=== PATIENT | female | born 1930 | race Caucasian/White ===

== ENCOUNTER 2017-04-29 19:37 | Inpatient (IN) ==
[2017-04-29] MEDS ORDERED: ASPIRIN PO STA (20:02)
[2017-04-29 20:11] LABS: MANUAL DIFF NEEDED? NO
[2017-04-29 20:16] LABS: BASO% 0.3 % (0.0-0.8); EOS# 0.16 X1000 (0.0-0.7); EOS% 2.2 % (0.0-10.0); HEMATOCRIT 37.3 % (37.0-47.0); HEMOGLOBIN 12.5 g/dL (12.0-16.0); IMM GRAN# 0.01 X1000 (0.0-0.04); IMM GRAN% 0.1 % (0.0-0.5); LYMPH# 0.77 X1000 (1.2-3.4); LYMPH% 10.5 % (20.5-51.1); MCH 31.6 PG (27-31); MCHC 33.5 g/dL (33-37); MCV 94.2 FL (81-99); MONO# 0.52 X1000 (0.11-0.59); MONO% 7.1 % (1.7-9.3); MPV 11.1 FL (7.4-10.4); NEUT% 79.8 % (42.2-75.2); PLT 127 X1000 (130-400); RBC 3.96 XMIL (4.2-5.4)
[2017-04-29] MEDS ORDERED: NITROGLYCERIN TOP ONE (20:18)
[2017-04-29] MEDS ORDERED: ZOFRAN ODT PO ONE (20:18)
[2017-04-29 20:30] LABS: INR 1.92 (0.86-1.15); PROTIME 23.5 Seconds (12.1-15.5); PTT PL 35.9 Seconds (22.6-43.9)
[2017-04-29] MEDS ORDERED: ZOFRAN IV ONE (20:40)
[2017-04-29 20:42] LABS: ALBUMIN 4.5 g/dL (3.5-5.0); CALCIUM 9.5 mg/dL (8.8-10.2); MAGNESIUM 1.9 mg/dL (1.5-2.7); POTASSIUM 4.4 mmol/L (3.5-5.1); TOTAL BILIRUBIN 0.6 mg/dL (0.20-1.00)
[2017-04-29] MEDS ORDERED: NS 2,000 ML IV ONE (21:55)
[2017-04-29] MEDS ORDERED: ZOFRAN IV PRN (21:57)
[2017-04-30 06:57] LABS: HEMATOCRIT 35.3 % (37.0-47.0); HEMOGLOBIN 11.7 g/dL (12.0-16.0); MCH 31.4 PG (27-31); MCHC 33.1 g/dL (33-37); MCV 94.6 FL (81-99); MPV 11.3 FL (7.4-10.4); RBC 3.73 XMIL (4.2-5.4)
[2017-04-30 07:11] LABS: ALBUMIN 3.8 g/dL (3.5-5.0); POTASSIUM 4.2 mmol/L (3.5-5.1); TOTAL BILIRUBIN 0.6 mg/dL (0.20-1.00); TOTAL PROTEIN 6.4 g/dL (6.3-8.3)
[2017-04-30] MEDS: PROTONIX PO SCH (07:24)
[2017-04-30] MEDS ORDERED: NS 2,000 ML IV ONE (08:03)
[2017-04-30] MEDS: COZAAR PO SCH ×2 (09:06→20:07)
[2017-04-30] MEDS: COREG PO SCH ×2 (09:06→20:07)
[2017-04-30] MEDS: XARELTO PO SCH (09:07)
[2017-04-30] MEDS: APRESOLINE PO SCH ×2 (13:41→20:07)
[2017-04-30] MEDS ORDERED: ARICEPT PO SCH (21:00)
[2017-04-30] MEDS ORDERED: ATIVAN PO PRN (22:58)
[2017-05-01] MEDS: PROTONIX PO SCH ×2 (05:57→06:01)
[2017-05-01] MEDS: APRESOLINE PO SCH ×2 (05:57→15:38)
[2017-05-01] MEDS: COREG PO SCH (08:22)
[2017-05-01] MEDS: XARELTO PO SCH (08:22)
[2017-05-01] MEDS: COZAAR PO SCH (08:22)
[2017-05-01 12:37] VITALS: BP 151/66
== END 2017-05-01 16:20 | disposition home or self-care (01) ==
LOC: P.ED 19:37 → P.MEDSURG 19:37
PROVIDERS: ATTEND Family Medicine

== ENCOUNTER 2019-05-19 17:20 | Inpatient (IN) ==
[2019-05-19] MEDS ORDERED: DIPHTHERIA/TETANUS ADULT IM ONE (18:00)
[2019-05-19] MEDS ORDERED: NS 1,000 ML IV ONE (18:00)
[2019-05-19 18:24] LABS: ALLEN TEST YES; BE -1.1 mmoll (-3.0-3.0); BLOOD TYPE ARTERIAL; METHB 1.2 % (0.0-1.5); O2(CT) 17.2 mL/dL (15.0-23.0); O2HB 95.1 % (95.0-99.0); PCO2(98.6) 33 mmHg (35-45); PO2(98.6) 82 mmHg (60-100); SAMPLE BLOOD; SAO2 97.8 % (95.0-100.0); THB 12.8 g/dL (11.5-17.4); pH(98.6) 7.44 (7.35-7.45)
[2019-05-19 18:25] LABS: MODALITY ROOM AIR
--- NOTE | 2019-05-19 18:35 | PROVIDER DOCUMENTATION ---
This chart was entered by Mitali Quintero Scribe, acting as scribe for Negrito Barclay MD. HPI-Syncope/Dizziness - General Source: patient, family (daughters) - History of Present Illness-Syncope/Dizzy Prior Episodes: reports: multiple episodes today Onset/Duration: reports: this morning Timing: reports: intermittent Position/Activity at time of episode: reports: standing Symptoms prior to episode: reports: lightheaded, confusion, injury. denies: headache, nausea/vomiting, chest pain, abdominal pain, back pain, diaphoresis Context: reports: lost consciousness Loss of Consciousness: brief (seconds) Location of injury. (If syncope resulted in an injury.): reports: head (nose abrasion noted), LUE, LLE Current Symptoms: reports: weakness. denies: chest pain, abdominal pain, nausea, dizzy, headache, blurred vision Recently Seen Here or By Another Healthcare Provider: Yes <Negrito Barclay - Last Filed: 05/19/19 18:35> <Scott Suárez - Last Filed: 05/19/19 21:58> - General Chief Complaint: Fall Stated Complaint: fall Time Seen by Provider: 05/19/19 17:45 Allergies/Adverse Reactions: Patient Allergies Allergy/AdvReac Type Severity Reaction Status Date / Time No Known Allergies Allergy Verified 04/29/17 19:49 Home Medications: Home Medication List Medication Instructions Recorded Confirmed Last Taken Type Rivaroxaban [Xarelto] 20 mg PO DAILY 07/20/13 11/30/17 04/29/17 History 20mg Pantoprazole [Protonix] 40 mg PO DAILY@0700 #0 tablet 12/17/13 11/30/17 04/29/17 Rx 40mg Carvedilol 12.5 mg PO BID 07/08/14 11/30/17 04/29/17 History 12.5mg Losartan [Cozaar] 50 mg PO BID 07/08/14 11/30/17 04/29/17 History 50mg Hydralazine [Apresoline] 25 mg PO Q8HR #90 tablet 07/10/14 11/30/17 04/29/17 Rx 25mg Spironolact/Hydrochlorothiazid 0.5 tab PO DAILY 11/16/15 09/06/17 09/05/17 History [Spironolactone-Hctz 25-25 Tab] 25mg Donepezil [Aricept] 10 mg PO HS 03/05/16 04/30/17 04/29/17 History 10mg - History of Present Illness-Syncope/Dizzy Nature of Presenting Problem: 88 yowf presents to the ed with c/o syncopal episode x2 today with jerking episodes today last time at 1500. pt sts unsure what caused the syncope. pt daughters at bedisde sts she has not felt herself since waking this am (Negrito Barclay) Review of Systems - Adult - REVIEW OF SYSTEMS - ADULT Constitutional: denies: chills, fever Eyes: reports: no symptoms reported Ears, Nose, Mouth & Throat: reports: no symptoms reported Cardiovascular: reports: syncope. denies: chest pain, palpitations Respiratory: reports: no symptoms reported Gastrointestinal: denies: abdominal pain, diarrhea, nausea, vomiting Genitourinary: reports: no symptoms reported Musculoskeletal: denies: back pain, neck pain Integumentary: reports: no symptoms reported Neurological: reports: see HPI, loss of balance, syncope. denies: dizziness/vertigo, headache/migraines, numbness, paresthesia, slurred speech, tremors Psychiatric: reports: no symptoms reported Endocrine: reports: no symptoms reported Hematologic/Lymphatic: reports: no symptoms reported Allergic/Immunologic: reports: no symptoms reported All Other Systems: Reviewed and Negative <Negrito Barclay - Last Filed: 05/19/19 18:35> Past History - Adult - PAST MEDICAL HISTORY-ADULT Review of Records: reports: Old Records Reviewed, Nursing Assessment Review, Medications Reviewed, Social history reviewed & non-contributory. Major Childhood Illnesses: reports: denies history Cardiovascular: reports: cardiac disease, A-Fib, CHF, HTN, hyperlipidemia Respiratory: reports: other (lung cancer). denies: asthma, COPD, pneumonia, sleep apnea, tuberculosis Gastrointestinal: reports: GERD. denies: cholelithiasis, ulcer Obstetrical/Gynecological: reports: denies history Genitourinary: reports: other (acute renal failure). denies: dialysis Musculoskeletal: reports: arthritis Hand Dominance: Right Handed Neurological: reports: dementia. denies: CVA, Seizures/Epilepsy Psychiatric: reports: denies history Endocrine/Immune: reports: Diabetes (borderline), other (hyperkalemia) Other Conditions: reports: eye problems/injury (difficulty with her eyes), other (hypovolemia, arthralgias) - PRIOR SURGERIES/PROCEDURES Surgical/Procedure History: reports: appendectomy, cholecystectomy, hysterectomy , esophageal dilation, orthopedic (extremity) (foot), joint replacement (Right knee replacement) - PRIOR HOSPITALIZATIONS Prior Hospitalizations: reports: none - IMMUNIZATION STATUS Childhood Immunizations: UTD Flu Vaccine: UTD - FAMILY HISTORY Family History: reviewed, not pertinent - SOCIAL HISTORY Smoking: denies Substance Use: denies Living Situation: family <Negrito Barclay - Last Filed: 05/19/19 18:35> Physical Exam-General - PHYSICAL EXAM-ADULT Initial Vital Signs Reviewed: Yes - CONSTITUTIONAL General Appearance: appears well, alert, no apparent distress - EYES Eyes: PERRL/EOMI, pink conjunctivae - HEAD, EARS, NOSE, MOUTH & THROAT HENMT: moist mucous membranes, other (abrasion noted to nose) - NECK Neck: non-tender, full range of motion, normal inspection - RESPIRATORY Respiratory: chest non-tender, lungs clear, normal breath sounds - CARDIOVASCULAR Cardiovascular: gallop/S3, irregularly irregular - CHEST (BREASTS) Chest/Breast: deferred - GASTROINTESTINAL (ABDOMEN) Abdominal Exam: normal bowel sounds, non tender, soft - LYMPHATIC Lymphatic: no adenopathy - MUSCULOSKELETAL Back Exam: normal inspection, no CVA tenderness, no vertebral tenderness Extremity: normal range of motion, normal capillary refill, pelvis stable, other (abrasions noted to left elbow) - SKIN Integumentary: normal color, normal turgor, warm/dry, abrasion(s) (left elbow and nose) - NEUROLOGIC Neurologic: grossly normal - PSYCHIATRIC Psych/Mental Status: normal mood/affect, normal thought content, normal thought process, other (pt has mild confusion) <Negrito Barclay - Last Filed: 05/19/19 18:35> Progress - CHANGE OF SHIFT REPORT (ED Provider) 1 Report Given and Care Transferred to:: Dr. Suárez Time of Transfer: 19:00 Items Pending: Labs, XRAY Results, CT/MRI Results <Negrito Barclay - Last Filed: 05/19/19 18:35> - PLAN OF CARE/RESULTS Result Diagrams: 05/19/19 18:25 05/19/19 18:25 - CONSULTS/PCP/HOSPITALIST Notification #1 *Consult/PCP/Hospitalist*: Dr Zaldivar for Dr Pinto Time Discussed: 21:54 Consult Disposition: Will see in ED, Admit <Jose ArmandoScott gamaLazaro - Last Filed: 05/19/19 21:58> - PLAN OF CARE/RESULTS Progress/Plan/Lab Results: Vital Signs - 8 hr 05/19/19 17:27 Temperature 97.9 F Pulse Rate 80 Respiratory Rate 20 Blood Pressure 188/90 O2 Sat by Pulse Oximetry 95 Laboratory Results - last 24 hr 05/19/19 05/19/19 05/19/19 18:15 18:25 18:25 WBC 6.83 RBC 4.33 Hgb 13.2 Hct 38.9 MCV 89.8 MCH 30.5 MCHC 33.9 RDW Std Deviation 14.2 Plt Count 145 MPV 10.1 Immature Gran % (Auto) 0.0 Neut % (Auto) 84.9 H Lymph % (Auto) 9.4 L Bryan % (Auto) 5.7 Eos % (Auto) 0.0 Baso % (Auto) 0.0 Immature Gran # (Auto) 0.00 Neut # (Auto) 5.80 Lymph # (Auto) 0.64 L Bryan # (Auto) 0.39 Eos # (Auto) 0.00 Baso # (Auto) 0.00 PT INR PTT (Actin FS) Specimen Type ARTERIAL Sample Site R RADIAL pH 7.44 pCO2 33 L pO2 82 HCO3 24.0 Base Excess -1.1 Oxyhemoglobin 95.1 ABG O2 Sat (Calculated) 17.2 ABG O2 Saturation 97.8 ABG Carboxyhemoglobin 1.60 ABG Methemoglobin 1.2 Robert Test YES A-a O2 Difference 26.0 Total Hemoglobin 12.8 Lactate 0.90 Blood Gas Modality ROOM AIR FiO2 % 21.0 Sodium Potassium Chloride Carbon Dioxide Anion Gap BUN Creatinine Estimated GFR/1.73 m2 BUN/Creatinine Ratio Glucose Calculated Osmolality Calcium Total Bilirubin AST ALT Alkaline Phosphatase Creatine Kinase Troponin T Total Protein Albumin Globulin Albumin/Globulin Ratio Plasma Lactate Urine Source Urine Color Urine Turbidity Urine pH Ur Specific [place] Urine Protein Ur Glucose (Stick) Ur Ketones (Stick) Urine Blood Urine Nitrite Urine Bilirubin Urobilinogen Dipstick Urine Leukocytes Urine WBC (Auto) Urine RBC (Auto) U Epithel Cells (Auto) Urine Bacteria (Auto) Urine Opiates Screen Ur Oxycodone Screen Ur Methadone, Qual Ur Barbiturates Screen Ur Phencyclidine Scrn Ur Amphetamines Screen U Benzodiazepines Scrn Urine Cocaine Screen U Cannabinoids Screen Plasma/Serum Ethyl Alc 05/19/19 05/19/19 05/19/19 18:25 18:25 18:25 WBC RBC Hgb Hct MCV MCH MCHC RDW Std Deviation Plt Count MPV Immature Gran % (Auto) Neut % (Auto) Lymph % (Auto) Bryan % (Auto) Eos % (Auto) Baso % (Auto) Immature Gran # (Auto) Neut # (Auto) Lymph # (Auto) Bryan # (Auto) Eos # (Auto) Baso # (Auto) PT 18.3 H INR 1.49 PTT (Actin FS) 32.7 Specimen Type Sample Site pH pCO2 pO2 HCO3 Base Excess Oxyhemoglobin ABG O2 Sat (Calculated) ABG O2 Saturation ABG Carboxyhemoglobin ABG Methemoglobin Robert Test A-a O2 Difference Total Hemoglobin Lactate Blood Gas Modality FiO2 % Sodium 137 Potassium 4.2 Chloride 100 Carbon Dioxide 23 L Anion Gap 14 BUN 36 H Creatinine 0.9 Estimated GFR/1.73 m2 59 BUN/Creatinine Ratio 40 Glucose 123 H Calculated Osmolality 284 Calcium 9.4 Total Bilirubin 0.66 AST 33 H ALT 28 Alkaline Phosphatase 124 H Creatine Kinase 60 Troponin T Total Protein 7.5 Albumin 4.1 Globulin 3.4 Albumin/Globulin Ratio 1.2 Plasma Lactate 1.1 Urine Source Urine Color Urine Turbidity Urine pH Ur Specific [place] Urine Protein Ur Glucose (Stick) Ur Ketones (Stick) Urine Blood Urine Nitrite Urine Bilirubin Urobilinogen Dipstick Urine Leukocytes Urine WBC (Auto) Urine RBC (Auto) U Epithel Cells (Auto) Urine Bacteria (Auto) Urine Opiates Screen Ur Oxycodone Screen Ur Methadone, Qual Ur Barbiturates Screen Ur Phencyclidine Scrn Ur Amphetamines Screen U Benzodiazepines Scrn Urine Cocaine Screen U Cannabinoids Screen Plasma/Serum Ethyl Alc 05/19/19 05/19/19 05/19/19 18:25 21:15 21:15 WBC RBC Hgb Hct MCV MCH MCHC RDW Std Deviation Plt Count MPV Immature Gran % (Auto) Neut % (Auto) Lymph % (Auto) Bryan % (Auto) Eos % (Auto) Baso % (Auto) Immature Gran # (Auto) Neut # (Auto) Lymph # (Auto) Bryan # (Auto) Eos # (Auto) Baso # (Auto) PT INR PTT (Actin FS) Specimen Type Sample Site pH pCO2 pO2 HCO3 Base Excess Oxyhemoglobin ABG O2 Sat (Calculated) ABG O2 Saturation ABG Carboxyhemoglobin ABG Methemoglobin Robert Test A-a O2 Difference Total Hemoglobin Lactate Blood Gas Modality FiO2 % Sodium Potassium Chloride Carbon Dioxide Anion Gap BUN Creatinine Estimated GFR/1.73 m2 BUN/Creatinine Ratio Glucose Calculated Osmolality Calcium Total Bilirubin AST ALT Alkaline Phosphatase Creatine Kinase Troponin T < 0.010 Total Protein Albumin Globulin Albumin/Globulin Ratio Plasma Lactate Urine Source CATH Urine Color YELLOW Urine Turbidity CLEAR Urine pH 5.5 Ur Specific [place] 1.021 Urine Protein 30 A Ur Glucose (Stick) NEGATIVE Ur Ketones (Stick) NEGATIVE Urine Blood NEGATIVE Urine Nitrite NEGATIVE Urine Bilirubin NEGATIVE Urobilinogen Dipstick NORMAL Urine Leukocytes NEGATIVE Urine WBC (Auto) <10 Urine RBC (Auto) <10 U Epithel Cells (Auto) <10 Urine Bacteria (Auto) NEGATIVE Urine Opiates Screen NONE DETECTED Ur Oxycodone Screen NONE DETECTED Ur Methadone, Qual NONE DETECTED Ur Barbiturates Screen NONE DETECTED Ur Phencyclidine Scrn NONE DETECTED Ur Amphetamines Screen NONE DETECTED U Benzodiazepines Scrn NONE DETECTED Urine Cocaine Screen NONE DETECTED U Cannabinoids Screen NONE DETECTED Plasma/Serum Ethyl Alc Orders Category Date Time Status Cardiac Monitoring DIRECTED Care 05/19/19 17:58 Active Finger Stick Blood Sugar (ED) DIRECTED Care 05/19/19 17:58 Active Oxygen Therapy- ED Nursing DIRECTED Care 05/19/19 17:58 Active Saline Loc NOW Care 05/19/19 17:58 Active CHEST-PORTABLE [RAD] Stat Exams 05/19/19 17:[address] HEAD W/O CONTRAST [CT] Stat Exams 05/19/19 18:00 Completed ABG [RESP] Routine Lab 05/19/19 18:15 Completed ALCOHOL BLOOD Stat Lab 05/19/19 18:25 Completed BLOOD CULTURE [BLDCUL] Stat Lab 05/19/19 18:51 Ordered CBC WITH ELECTRONIC DIFF [HEME] Stat Lab 05/19/19 18:25 Completed CK PROFILE [SP CHEM] Stat Lab 05/19/19 18:25 Completed COMPREHENSIVE METABOLIC PANEL [CHEM] Stat Lab 05/19/19 18:25 Completed LACTATE, PLASMA [CHEM] Stat Lab 05/19/19 18:25 Completed PROTIME WITH INR [COAG] Stat Lab 05/19/19 18:25 Completed PTT [COAG] Stat Lab 05/19/19 18:25 Completed TROPONIN T Stat Lab 05/19/19 18:25 Completed URINALYSIS [URINALYSIS] Stat Lab 05/19/19 21:15 Completed URINE DRUG SCREEN Stat Lab 05/19/19 21:15 Completed 0.9% Sodium Chloride Inj [Ns] 1,000 ml Med 05/19/19 18:00 Discontinued IV 999 mls/hr Diphtheria/Tetanus Adult Med 05/19/19 18:00 Discontinued 0.5 ml IM .ONCE ONE Altered Mental Status Stat Oth 05/19/19 17:58 Ordered EKG [EKG] Stat Ther 05/19/19 17:58 Ordered Departure <Negrito Barclay - Last Filed: 05/19/19 18:35> - Departure Date of Disposition Decision: 05/19/19 Time of Disposition Decision: 21:53 Certified Medical Emergency: Emergent - Critical Care Note This patient required my direct & personal management of CC.: No <Scott Suárez - Last Filed: 05/19/19 21:58> - Departure DIAGNOSIS: Syncope and collapse, Seizure Disposition: ADMITTED INPATIENT 09 Condition: Fair Referrals and Follow-Ups: Ady Pinto MD [Primary Care Provider] - Attestation - Physician/ BEBETO Attestation Patient care was provided by Advanced Practice Provider:: No The physician spent face to face time with patient:: Yes Advanced Practice Provider documentation review:: Supervising physician onsite and consulted in the evaluation and care of this patient. The physician did have a face to face encounter with the patient. <Negrito Barclay - Last Filed: 05/19/19 18:35> This chart was documented by the indicated scribe, (Mitali Quintero Scribe) and accurately reflects the services I performed and decisions made by me, Negrito Barclay MD, as attested by the provider's signature.
--- NOTE | 2019-05-19 18:44 | Diag Imaging Result Doc PS360 ---
EXAM: CHEST-PORTABLE HISTORY: fall TECHNIQUE: Chest single view COMPARISON: 11/30/2017 FINDINGS: The lungs are well expanded. No pneumothorax. The mediastinum is not widened. The heart is enlarged. The vessels are not distended. There are no infiltrates. No effusion identified. IMPRESSION: No injury. Electronically signed by Ji Swenson 05/19/2019 6:41 PM
--- NOTE | 2019-05-19 19:26 | Diag Imaging Result Doc PS360 ---
EXAM: CT HEAD W/O CONTRAST HISTORY: Head injury TECHNIQUE: CT head without contrast COMPARISON: 03/01/2019 FINDINGS: No parenchymal hemorrhage. No epidural or subdural hematoma. No subarachnoid hemorrhage. There is atrophy with chronic microvascular ischemic changes. No mass identified on this noncontrasted exam. No hydrocephalus. No skull fracture. Mild posterior scalp soft tissue swelling along the left. He IMPRESSION: No hemorrhage. No intracranial injury This exam was performed using automated exposure control, adjustment of mA or kV according to patient size, and/or use of iterative reconstruction technique. Electronically signed by Ji Swenson 05/19/2019 7:23 PM
[2019-05-19 19:27] LABS: HEMATOCRIT 38.9 % (37.0-47.0); HEMOGLOBIN 13.2 g/dL (12.0-16.0); LYMPH# 0.64 X1000 (1.2-3.4); LYMPH% 9.4 % (20.5-51.1); MCH 30.5 PG (27-31); MCHC 33.9 g/dL (33-37); MCV 89.8 FL (81-99); MONO# 0.39 X1000 (0.11-0.59); MONO% 5.7 % (1.7-9.3); MPV 10.1 FL (7.4-10.4); NEUT% 84.9 % (42.2-75.2); PLT 145 X1000 (130-400); RBC 4.33 XMIL (4.2-5.4); RDW 14.2 % (11.5-14.5); WBC 6.83 X1000 (4.8-10.8)
[2019-05-19 19:35] LABS: INR 1.49; PROTIME 18.3 Seconds (11.0-16.0)
[2019-05-19 19:36] LABS: PTT 32.7 Seconds (22.3-41.8)
[2019-05-19 19:53] LABS: ALB/GLOB RATIO 1.2; ALBUMIN 4.1 g/dL (3.5-5.0); CALCIUM 9.4 mg/dL (8.8-10.2); CREATININE 0.9 mg/dL (0.5-0.9); POTASSIUM 4.2 mmol/L (3.5-5.1); TOTAL BILIRUBIN 0.66 mg/dL (0.20-1.00); TOTAL PROTEIN 7.5 g/dL (6.3-8.3)
[2019-05-19 21:25] LABS: URINE SOURCE CATH
[2019-05-19 21:36] LABS: BILIRUBIN URINE NEGATIVE (NEGATIVE); BLOOD URINE NEGATIVE (NEGATIVE); COLOR YELLOW; GLUCOSE URINE NEGATIVE (NEGATIVE); KETONE URINE NEGATIVE (NEGATIVE); LEUKOCYTES URINE NEGATIVE (NEGATIVE); NITRITE URINE NEGATIVE (NEGATIVE); PH URINE 5.5; PROTEIN URINE 30 mg/dL (NEGATIVE); SP GRAVITY URINE 1.021; TURBIDITY URINE CLEAR (CLEAR); UR EPITHELIAL CELLS <10 /HPF (<10); URINE BACTERIA NEGATIVE /HPF; URINE RBC <10 /HPF (<10); URINE WBC <10 /HPF (<10); UROBILINOGEN URINE NORMAL (NORMAL)
[2019-05-19 21:40] LABS: UR AMPHETAMINES QUAL NONE DETECTED (NONE DETECT); UR BARBITUATES QUAL NONE DETECTED (NONE DETECT); UR BENZODIAZEPIN QUAL NONE DETECTED (NONE DETECT); UR CANNABINOIDS QUAL NONE DETECTED (NONE DETECT); UR COCAINE QUAL NONE DETECTED (NONE DETECT); UR METHADONE QUAL NONE DETECTED (NONE DETECT); UR OPIATES QUAL NONE DETECTED (NONE DETECT); UR OXYCODONE QUAL NONE DETECTED (NONE DETECT); UR PCP QUAL NONE DETECTED (NONE DETECT)
[2019-05-19] MEDS ORDERED: ATIVAN IV ONE (22:01)
--- NOTE | 2019-05-19 22:23 | Diag Imaging Result Doc PS360 ---
EXAM: KNEE 3 VIEWS LEFT HISTORY: fall, injury TECHNIQUE: Left knee, three views COMPARISON: None. FINDINGS: No fracture. No dislocation. IMPRESSION: No acute bony injury. Electronically signed by Ji Swenson 05/19/2019 10:21 PM
--- NOTE | 2019-05-19 22:24 | Diag Imaging Result Doc PS360 ---
EXAM: ELBOW COMPLETE LEFT HISTORY: fall, injury TECHNIQUE: Left elbow, three views COMPARISON: None. FINDINGS: No fracture. No dislocation. IMPRESSION: No acute bony injury. Electronically signed by Ji Swenson 05/19/2019 10:22 PM
[2019-05-20] MEDS ORDERED: ATIVAN IV PRN (00:32)
[2019-05-20] MEDS ORDERED: TYLENOL PO PRN (00:32)
[2019-05-20] MEDS ORDERED: ZOFRAN IV PRN (00:32)
[2019-05-20] MEDS: NS 1,000 ML IV SCH ×2 (00:57→11:52)
[2019-05-20] MEDS: LABETALOL IV PRN ×2 (02:15→17:03)
--- NOTE | 2019-05-20 06:34 | HISTORY AND PHYSICAL ---
PRIMARY CARE PROVIDER: Dr. Ady Pinto. CHIEF COMPLAINT: Syncope and seizures. HISTORY OF PRESENT ILLNESS: Mrs. Cadena is an 88-year-old, female who carries a past medical history of hypertension, GERD, follicular lymphoma, followed by Dr. Cook, chronic kidney disease, chronic atrial fibrillation, osteoporosis, and dementia. At baseline, patient knows her name and some family members, could not tell her date of . This is normal, per her family's report. They reported this a.m. that she had 1 episode of vomitus and not acting right. She was more lethargic than usual. The patient states she just does not feel right, but could not tell me exactly how she felt. However, around 1700 hours, she fell and hit her head on the Fridge as well as hitting her elbow and her knee. Workup in the ED, head CT did not show anything acute. Chest x-ray, no injury. Her elbow and knee x-ray have been taken and are currently pending. However, they stated they had 2 episodes of witnessed seizure in the ED. The patient does not appear to be postictal. She was given 1 dose of Ativan and we will monitor in the ICU overnight. Continue with p.r.n. labetalol for blood pressure. REVIEW OF SYSTEMS: Hard to obtain, the patient could not really tell me any of her symptoms, except for just generalized feeling funny. PAST MEDICAL HISTORY: 1. Hypertension. 2. Gastroesophageal reflux disease. 3. Follicular lymphoma, being watched by Dr. Cook. 4. Chronic kidney disease. 5. Chronic atrial fibrillation. 6. Osteoporosis. 7. Dementia. Baseline is knowing her name. She does not know her date of . She knows some family members. PAST SURGICAL HISTORY: 1. Appendectomy. 2. Hysterectomy. 3. Total knee replacement. 4. Repair of rectal prolapse. SOCIAL HISTORY: She lives with family 17/03. She has 6 children total, 3 to 4 are her primary care providers at all times. There is no alcohol, tobacco, or illicit drug use. ALLERGIES: No known drug allergies. MEDICATIONS: Home medications are being compiled. PHYSICAL EXAMINATION: VITAL SIGNS: Temperature is 97.9 degrees, heart rate 80, respirations 20, blood pressure 188/90, O2 saturation is 95% on room air. GENERAL: Mrs. Cadena is an 88-year-old female who is lying in the bed, in no acute distress. HEENT: Atraumatic, normocephalic. PERRL. NECK: Supple. Trachea midline. CARDIOVASCULAR: Irregularly regular rate and rhythm. S1, 2 appreciated. No murmurs, gallops, rubs noted. PULMONARY: Bilateral pulmonary breath sounds are clear bilateral. GASTROINTESTINAL: Flat, soft, nontender, nondistended. Positive bowel sounds. EXTREMITIES: Lower extremities were negative for edema. NEUROLOGIC: She is awake and alert. She does know her name, could not tell me her date of or where she was. DIAGNOSTICS: As per HPI. LABORATORY DATA: White count 6, hemoglobin and hematocrit 13 and 38, platelet count is 145,000. Sodium 137, potassium 4.2, BUN 36, creatinine 0.9. Blood glucose is 123. Urinalysis is negative for bacteria, negative for nitrates. Tox screen is completely negative. ASSESSMENT AND PLAN: 1. Questionable syncopal episode at home versus just a fall. Patient is supposed to walk with a walker. She did hit her head, her elbow, and her knee. Her head CT does not show anything acute. Elbow and knee x-ray are currently pending. 2. Questionable seizure activity. The patient does not appear to be postictal. She does not have a history of seizures. We will provide her with Ativan. Seizure precautions. 3. Dementia. At baseline, she is aware of her name, not her date of , some family members. She does not know where she. 4. Hypertension. 5. Gastroesophageal reflux disease. 6. Follicular lymphoma, followed by Dr. Cook. 7. Chronic kidney disease, stable. 8. Chronic atrial fibrillation, currently rate controlled. 9. Hypertension. We will continue with p.r.n. labetalol with parameters. 10. Do Not Resuscitate level 1. 11. Further recommendations to follow physician evaluation, laboratory and diagnostic data. Dictated by PK Suarez for Luis Zaldivar MD I have performed a face to face diagnostic evaluation. Labs/ Xrays- reviewed. Exam- Chest- clear, CV- regular. A/P- syncope, possible seizure- Admit, orthostatic. BP and pulse, seizure precautions. Dr. Zaldivar cc: MD Ady Munoz MD [facility]
[2019-05-20 06:49] LABS: BASO# 0.01 X1000 (0.0-0.2); BASO% 0.1 % (0.0-0.8); EOS# 0.01 X1000 (0.0-0.7); EOS% 0.1 % (0.0-10.0); HEMATOCRIT 36.8 % (37.0-47.0); HEMOGLOBIN 12.4 g/dL (12.0-16.0); LYMPH# 0.68 X1000 (1.2-3.4); LYMPH% 8.9 % (20.5-51.1); MCH 30.2 PG (27-31); MCHC 33.7 g/dL (33-37); MCV 89.5 FL (81-99); MONO# 0.69 X1000 (0.11-0.59); MONO% 9.1 % (1.7-9.3); MPV 10.7 FL (7.4-10.4); NEUT# 6.21 X1000 (1.4-6.5); NEUT% 81.8 % (42.2-75.2); PLT 138 X1000 (130-400); RBC 4.11 XMIL (4.2-5.4); RDW 14.2 % (11.5-14.5)
[2019-05-20 07:25] LABS: ALB/GLOB RATIO 1.1; ALBUMIN 3.6 g/dL (3.5-5.0); CALCIUM 9.4 mg/dL (8.8-10.2); MAGNESIUM 1.9 mg/dL (1.5-2.7); POTASSIUM 3.8 mmol/L (3.5-5.1); TOTAL BILIRUBIN 0.87 mg/dL (0.20-1.00)
--- NOTE | 2019-05-20 08:48 | EKG Report ---
Test Performed on : 05/20/2019 08:27:07 AM Test Reason : CP Blood Pressure : / mmHG Vent. Rate : 078 BPM Atrial Rate : 078 BPM P-R Int : 000 ms QRS Dur : 090 ms QT Int : 396 ms P-R-T Axes : 000 029 044 degrees QTc Int : 451 ms Atrial fibrillation. Abnormal ECG When compared with ECG of 30-NOV-2017 14:33, No significant change was found Confirmed by Jannie GOODRICH, Mac Toribio ([id number]) on 05/20/2019 8:46:44 PM
[2019-05-20] MEDS: COZAAR PO SCH ×3 (09:13→22:49)
[2019-05-20] MEDS: COREG PO SCH ×3 (09:13→21:18)
[2019-05-20] MEDS: APRESOLINE PO SCH ×4 (10:41→21:18)
[2019-05-20 13:59] LABS: URINE SOURCE CATH
--- NOTE | 2019-05-20 14:04 | CONSULTATION ---
DATE OF CONSULTATION: 05/20/2019 Ms. Cadena is 88 years old with long-standing dementia and recent history suggestive of seizure. History from attentive son and daughter at the bedside is that she had a few 1-2 second episodes of generalized jerking with poor responsiveness witnessed yesterday. Later, she had a more protracted episode with generalized jerking involving all limbs followed by drowsiness. Family has not seen this behavior before. They had not recognized a seizure before, but there has been occasional periods of inattention, possibly altered awareness, blank staring without definite motor phenomena. These episodes may have been going on for as long as a year. She has a history of occasional falling and passing out. Seizure had not been recognized until yesterday. Family reports traffic monitor specialist showed heart rate zero very briefly before the episodes described above. There is not history of diagnosed stroke, other seizure or altered awareness, serious head injury, ethanol abuse, illicit drug use. There is family history of dementia in her father. For dementia, she took donepezil for a few months and did not tolerate that. Family's best recollection is that she had increased passing-out spells then. She did not take any other cholinesterase inhibitor or memantine. Her memory has continued to decline. Workup here includes lab showing mildly elevated BUN which is lower than what was recorded in 2017. Blood sugars have been 120s. AST was 33, also lower than what was recorded in the past. Urine drug screen was all negative. Noncontrast CT of the head shows old changes with nothing focal or acute and nothing significantly different compared to 03/01/2019 scan. On exam, Ms. Cadena is supine, awake, alert. She seems attentive. She answered simple questions. She could not identify the hospital. She incorrectly identified her daughter as her sister and named her incorrectly. Speech is a little bit slow but not significantly dysarthric. Language function is intact on very brief testing. I did not test her cognitive function further. Head and neck are unremarkable. There is no meningismus. She has full visual figueroa tested grossly by confrontational finger counting. Extraocular movements are full horizontally. She has slightly diminished upgaze, typical for age. Facial motility is little bit diminished bilaterally, but symmetric. She has good power in the limbs. Limb tone is symmetric. Plantar response is silent bilaterally. Reflexes are 1+ at the wrists and trace at the ankles bilaterally. IMPRESSION: Global encephalopathy, probably multifactorial, clear history of baseline dementia/major neurocognitive disorder and question of additional seizure disorder. Seizure may occur during the course of degenerative central nervous system process including Alzheimer's disease and other dementia. I do not see any obvious toxic or metabolic explanation for seizure. Report that she may have been bradycardic associated with these episodes is noted, but I am not sure that has been documented. I will order EEG and further plans will depend on that report. If the EEG shows tendency to seizure, we will likely recommend adding medicine to control seizures. On the other hand, if EEG does not show tendency to seizure, decision will be more difficult. If a cardiac explanation for her episodes is established, I do not think we would add medicine for seizure control. Later, we might consider cautious retrial with cholinesterase inhibitor or memantine, not urgent. Thanks for asking neurology to see Ms. Cadena. cc: MD Ady Ortega III, MD MTDD
[2019-05-20 14:08] LABS: BILIRUBIN URINE NEGATIVE (NEGATIVE); BLOOD URINE NEGATIVE (NEGATIVE); COLOR YELLOW; GLUCOSE URINE NEGATIVE (NEGATIVE); KETONE URINE NEGATIVE (NEGATIVE); LEUKOCYTES URINE NEGATIVE (NEGATIVE); NITRITE URINE NEGATIVE (NEGATIVE); PH URINE 5.5; PROTEIN URINE 30 mg/dL (NEGATIVE); SP GRAVITY URINE 1.021; TURBIDITY URINE CLEAR (CLEAR); UROBILINOGEN URINE NORMAL (NORMAL)
[2019-05-20] MEDS ORDERED: STERILE WATER INJ. INJ ONE (14:08)
[2019-05-20] MEDS ORDERED: GEODON IM ONE ×2 (14:08→18:58)
[2019-05-20 14:10] LABS: UR EPITHELIAL CELLS <10 /HPF (<10); URINE BACTERIA NEGATIVE /HPF; URINE RBC <10 /HPF (<10); URINE WBC <10 /HPF (<10)
[2019-05-20] MEDS: XARELTO PO SCH (17:02)
[2019-05-20] MEDS ORDERED: CATAPRES PO PRN (18:28)
[2019-05-20] MEDS: STERILE WATER INJ. INJ PRN ×2 (19:34→23:27)
--- NOTE | 2019-05-20 20:07 | PROGRESS NOTE ---
DATE: 05/20/2019 SUBJECTIVE: The patient's chart was reviewed. In summary, the patient was admitted yesterday with a syncopal episode/seizures. Seizure activity was witnessed per family. The patient was treated with Ativan therapy. Throughout the night, patient had persistent confusion, above her baseline dementia. Upon my arrival this morning, the patient remained confused. She complained of lower abdominal discomfort. A bladder scan was performed. The patient was found to be an adequately emptying her bladder. A Dior catheter was placed. Blood pressure at that time was noted to be elevated as well. Her home medications were resumed. Because of the possible seizure activity, Dr. Tim was consulted. Throughout the day, the patient continued to have considerable confusion and agitation. Unfortunately, the patient was quite difficult to maintain in the bed secondary to her agitation. The patient was provided a dose of Geodon with some improvement. This evening, the patient continues to be quite agitated. Nurses are being called into the room secondary to bed alarm alert every several minutes. When inquiring symptoms from patient, she is unable to accurately provide. There has been no evidence of fevers, chills, nausea, vomiting, shortness of breath, or chest discomfort. The patient has a mild intermittent cough. She attempted clear liquids today and tolerated this reasonably well. OBJECTIVE: T-max 99.6, heart rate 79 to 92, respirations 19 to 26, blood pressure 125 to 220 over 78 to 132.General: Elderly, confused. Cardiovascular: Irregularly irregular. No significant murmurs, rubs, or gallops. Pulmonary: Clear to auscultation anteriorly. Abdomen: Soft, diffusely tender without guarding or rebound. Positive bowel sounds. Extremities: Moves all extremities well. No significant clubbing, cyanosis, or edema. Dermatologic: Evaluation reveals no evidence of rash. LABORATORY DATA: White blood cell count 7.60, hemoglobin 12.4 hematocrit 36.8, platelet count 138,000. Sodium 140, potassium 3.8, chloride 104, bicarb 22, BUN 30, creatinine 1.0 glucose 129. Calcium 9.4 magnesium 1.9. Total bilirubin 0.87, total protein 7.0, albumin 3.6. Alkaline phosphatase 109, AST 30, ALT 25. TSH 1.78. Urinalysis revealed 30 protein. ASSESSMENT AND PLAN: 1. Possible syncopal episode - the patient was diagnosed prior to admission. We will pursue a carotid Doppler and echocardiography. We will follow patient on telemetry. While hospitalized, there have been no further episodes. 2. Possible seizure activity - as above. Dr. Tim was consulted. EEG evaluation has been recommended. We will determine if further medical intervention is appropriate depending on these results. For now, we will continue as-needed Ativan. 3. Alteration of mental status/agitation - this patient is experiencing significant delirium above her baseline dementia. At this point, patient has no focal findings. I do not appreciate a an infectious etiology. We will continue supportive care for now. We will remain aware that an underlying encephalitis is a possibility, but seems less likely. 4. Dementia - patient has advanced disease at baseline. We will continue supportive care. 5. Hypertension - patient's blood pressure is labile, but at times significantly elevated. Home medications were resumed. As-needed labetalol have been provided. We will follow this. 6. 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 We remain aware. 7. Atrial fibrillation - patient is rate controlled. We will continue anticoagulation. 8. Disposition - at this point, the patient continues to require alf care in a hospital setting. We will plan discharge home once appropriate. cc: MD Ady Johnson MD
--- NOTE | 2019-05-20 20:35 | Carotid Study ---
DATE: 05/20/2019 DESCRIPTION OF STUDY: This is the bilateral duplex and color flow imaging of the carotid arteries performed using the [employer] vivid E9 ultrasound System with a 9L-D transducer. FINDINGS: The velocity centimeters per second was review for both carotid systems. The right ICA/CCA ratio is 1.53 corresponding to percent stenosis of 0% to 39%. The left ICA/CCA ratio is 1.08 corresponding to a percent stenosis of 0% to 39%. INTERPRETATION: Mild atherosclerotic disease of the distal common and internal carotid arteries bilaterally without evidence of a hemodynamically significant lesion in either carotid system. cc: MD Pardeep Conklin MD Timothy P. Weirich, MD
[2019-05-20] MEDS: GEODON IM PRN (23:26)
[2019-05-21] MEDS: NS 1,000 ML IV SCH ×3 (00:16→14:29)
--- NOTE | 2019-05-21 01:04 | ECHO REPORT ---
ORDER DATE: 05/20/2019 MEASUREMENTS: 1. Left ventricular end-diastolic diameter 4.0. 2. Left ventricular end systolic diameter 2.5. 3. Septal thickness 0.8. 4. Posterior wall thickness 0.8. 5. Aortic root 2.9. 6. Left atrium 4.9. SUMMARY: 1. Adequate quality study. 2. Aortic valve is trileaflet and opens normally on 2-dimensional images. Peak gradient across the aortic valve is less than 5 mmHg. Mitral, tricuspid, and pulmonic valves are without evidence of structural abnormality with moderate (2+) posteriorly directed mitral regurgitation, moderate tricuspid regurgitation, and [id number] pulmonic insufficiency. The estimated systolic PA pressure by Doppler is 70 to 75 mmHg, suggesting moderate to severe pulmonary hypertension. Aortic root is normal in size. 3. Normal left ventricular dimensions demonstrated. Estimated left ventricular ejection fraction appears to be at least 60%. No regional wall abnormality can be appreciated. Left atrium is moderately enlarged. The right atrium is mildly enlarged. The right ventricle is normal in size with grossly preserved right ventricular systolic function. 4. Very small circumferential pericardial effusion demonstrated without echocardiographic evidence of hemodynamic impact. 5. Appearance of inferior vena cava suggests elevated central venous pressure. cc: MD Pardeep Toledo MD Timothy P. Weirich, MD
[2019-05-21] MEDS: LABETALOL IV PRN (01:42)
[2019-05-21] MEDS: CATAPRES PO PRN (02:42)
[2019-05-21] MEDS: APRESOLINE PO SCH ×3 (04:33→20:32)
[2019-05-21] MEDS: PROTONIX PO SCH (06:00)
[2019-05-21 06:23] LABS: BASO# 0.01 X1000 (0.0-0.2); BASO% 0.1 % (0.0-0.8); EOS# 0.02 X1000 (0.0-0.7); EOS% 0.2 % (0.0-10.0); HEMATOCRIT 38.8 % (37.0-47.0); HEMOGLOBIN 13.4 g/dL (12.0-16.0); IMM GRAN# 0.02 X1000 (0.0-0.04); IMM GRAN% 0.2 % (0.0-0.5); LYMPH# 0.76 X1000 (1.2-3.4); LYMPH% 7.1 % (20.5-51.1); MCH 30.5 PG (27-31); MCHC 34.5 g/dL (33-37); MCV 88.2 FL (81-99); MONO# 1.06 X1000 (0.11-0.59); MONO% 9.9 % (1.7-9.3); MPV 10.4 FL (7.4-10.4); NEUT# 8.86 X1000 (1.4-6.5); NEUT% 82.5 % (42.2-75.2); PLT 137 X1000 (130-400); RDW 14.2 % (11.5-14.5); WBC 10.73 X1000 (4.8-10.8)
--- NOTE | 2019-05-21 06:51 | PROGRESS NOTE ---
DATE: 05/21/2019 SUBJECTIVE: This is an 88-year-old who came in with past medical history of hypertension, gastroesophageal reflux disease, follicular lymphoma followed by Dr. Cook, chronic kidney disease, chronic atrial fibrillation, osteoporosis, and dementia. At baseline, patient knows her name and some family members, but could not tell her date of . This is normal per family's report. They report that the morning of admission on the had 1 episode of vomiting and not acting right. She is more lethargic than usual. The patient states she does not feel right, could not tell exactly how she felt. Around 5:00 in the evening, she fell and hit her head on the refrigerator as well as hitting her elbow and her knee. Workup in the ED and head CT did not show anything acute. Chest x-ray shows no injury. Her elbow and knee x-ray have been taken, and did not show any fracture. She had 2 episodes of witnessed seizures in the emergency room. She did not appear to be postictal. She was given a dose of Ativan and moved to the ICU. They have had trouble getting her blood pressure down, and she has had more confusion. PAST MEDICAL HISTORY: Reviewed again. 1. Hypertension. 2. Gastroesophageal reflux. 3. Follicular lymphoma being watched by Dr. Cook. 4. Chronic kidney disease. 5. Chronic atrial fibrillation. 6. Osteoporosis. 7. Dementia. PAST SURGICAL HISTORY: 1. Appendectomy. 2. Hysterectomy. 3. Total knee replacement. 4. Repair of rectal prolapse. DIAGNOSTIC: 1. She had a head CT done without contrast on . No hemorrhage. No intracranial injury. Her carotid Doppler's were done yesterday with mild atherosclerotic disease in the distal common and internal carotid arteries bilaterally without evidence of hemodynamically significant lesion. 2. Echocardiogram was an adequate study. Aortic valve trileaflet opens normally. Mitral, tricuspid, and pulmonic valves without any evidence of structural abnormality. There was moderate mitral regurgitation, moderate tricuspid regurgitation, mild to moderate pulmonary insufficiency. Pulmonary pressure with 70 to 75 mm suggesting moderate to severe pulmonary hypertension. Normal left ventricular function ejection fraction 60%. There are small circumferential pericardial effusion demonstrated without hemodynamic significance. Dr. Tim has seen, and appeared to have global encephalopathy, and multiple multifactorial. She has a clear history of baseline dementia, major neurocognitive disorder, and question of additional seizure disorder. Seizure may occur during course of degenerative central nervous system process including Alzheimer's dementia. I do not see any obvious toxic or and metabolic formation procedures. She has been bradycardic since these episodes. OBJECTIVE: On exam, she is requiring wrist restraints. She is confused. She was talking about having a conversation with herself when I came in. Blood pressures ranging 180/100 in spite of numerous medications to try and get it down. Temperature 98.2 degrees, pulse 109, respirations 24, and blood pressure 186/112. Pupils are equal and round. Lungs are clear in all lung figueroa. Cardiovascular regular rhythm and rate without murmur or S3. Her pupils appear equal. ASSESSMENT AND PLAN: We are going to get an MRI today. I guess we need to consider possibility of reversible posterior cerebral leukoencephalopathy or reversible posterior cerebral vascular syndrome. I am going to put her on a Cardene drip, and see if this will help. REVIEW OF LABORATORY: CBC this morning, white count 7600, hematocrit 36, and platelet count 138,000. Sodium 140, potassium 3.8, chloride 104, BUN 30, and creatinine 1.0. cc: MD Ady Lezama MD
[2019-05-21 06:53] LABS: AGAP 18; ALBUMIN 3.6 g/dL (3.5-5.0); ALKALINE PHOSPHATASE 113 U/L (32-104); BUN 21 mg/dL (8-22); CALCIUM 9.2 mg/dL (8.8-10.2); CHLORIDE 99 mmol/L (98-107); COSMO 277; CREATININE 0.8 mg/dL (0.5-0.9); ESTIMATED GFR > 60; GLUCOSE 129 mg/dL (70-104); GOT 35 U/L (10-30); GPT 27 U/L (10-36); POTASSIUM 3.5 mmol/L (3.5-5.1); SODIUM 136 mmol/L (136-145); TCO2 19 mmol/L (25-35); TOTAL BILIRUBIN 1.23 mg/dL (0.20-1.00); TOTAL PROTEIN 7.2 g/dL (6.3-8.3)
[2019-05-21] MEDS ORDERED: SEROQUEL PO ONE (07:17)
[2019-05-21] MEDS: CARDENE 20 MG/D5W 20 MG/200 ML PIGGYBACK IV SCH ×3 (07:20→21:19)
[2019-05-21] MEDS: COZAAR PO SCH ×2 (09:07→20:32)
[2019-05-21] MEDS: COREG PO SCH ×2 (09:07→20:32)
[2019-05-21 12:18] LABS: ALLEN TEST NO; BE -1.5 mmoll (-3.0-3.0); BLOOD TYPE ARTERIAL; HCO3-(ACT) 23.6 mmoll (20.0-26.0); METHB 0.9 % (0.0-1.5); O2(CT) 15.6 mL/dL (15.0-23.0); PCO2(98.6) 28 mmHg (35-45); PO2(98.6) 51 mmHg (60-100); SAMPLE BLOOD; SAO2 91.7 % (95.0-100.0); THB 12.5 g/dL (11.5-17.4); pH(98.6) 7.48 (7.35-7.45)
[2019-05-21 12:21] LABS: MODALITY ROOM AIR; O2HB 88.8 % (95.0-99.0)
--- NOTE | 2019-05-21 12:27 | PROGRESS NOTE ---
DATE: 05/21/2019 SUBJECTIVE: There is no family present in the patient's room or out in the waiting room. I spoke at length with Dr. Dubon and with Dr. Judy Tim about her predicament. We do have a plan going forward. OBJECTIVE: Vital signs: Last measured temperature is 97.8 degrees, pulse rate is 97, respirations are 24 to 25, blood pressure is 135/73, 92% saturated on what is listed as room air. General: The patient is not oriented, although she is alert, with her eyes closed. She periodically will open her eyes and look around as she is talking to no one in particular. Sometimes she will close her eyes and be silent. She appears to be delirious relative to baseline. Lungs: The patient's lungs are clear. Cardiovascular: She is irregularly irregular at a variable rate while I was listening to her. She did have a run of what appeared to be atrial flutter with about a 3 or 4:1 conduction rate. LABORATORY: White cell count 10.7, hematocrit 39. Bicarb is down at 19. BUN 21, creatinine 0.8, blood sugar is 129, alkaline phosphatase is slightly elevated at 113. ASSESSMENT/PLAN: 1. I noted that Dr. Dubon had already made a note for today. In speaking with him and with Dr. Tim, I think we are going to proceed with an MRI to make sure any other structural or vascular lesion is not impeding her mentation. The bigger question is whether there is a cardiovascular reason for her apparent episodic seizure-like activity. I do not have any documentation of bradycardia. The patient does have atrial fibrillation generally with a rapid ventricular response. We will continue to monitor this. 2. The patient's dementia is at end stage. She has not been tolerant to Aricept in the past, as when she was on that, it increased her "blackout episodes." 3. The patient's blood pressure is better controlled on the Cardene drip. We may need to transition her to some type of calcium channel sarahy to better facilitate blood pressure control. 4. Overall, the patient continues to need inpatient care. cc: Ady Pinto MD
--- NOTE | 2019-05-21 13:31 | EEG REPORT ---
DATE: 05/20/2019 COMMENT: This is a digitally recorded EEG done portably in the ICU on an 88-year-old patient with recent apparent seizure, baseline dementia. FINDINGS: During waking, medium amplitude 8.5-9 Hz posterior rhythm is present bilaterally with uncertain reactivity to eye opening. Background contains abundant polymorphic and rhythmic theta frequencies at low to medium amplitude across the hemispheres symmetrically. Photic stimulation did not significantly alter the record. Hyperventilation was not done. Drowsing occurred with appearance of more generalized slowing and attenuation of the posterior rhythm. Stage II sleep was not recorded. No definite epileptiform discharge was identified. night monitor showed no bradycardia during this EEG. INTERPRETATION: Normal EEG. CORRELATION: The amount of slowing present is considered to be just within acceptable limit for normal. The absence of epileptiform discharges on a single EEG does not exclude a clinical diagnosis of seizures. cc: MD Ady Ortega III, MD
[2019-05-21] MEDS: XARELTO PO SCH (17:00)
[2019-05-22] MEDS: NS 1,000 ML IV SCH ×2 (03:59→17:20)
[2019-05-22] MEDS: APRESOLINE PO SCH ×3 (04:40→20:51)
[2019-05-22] MEDS: GEODON IM PRN (04:40)
[2019-05-22] MEDS: STERILE WATER INJ. INJ PRN (04:40)
[2019-05-22] MEDS: PROTONIX PO SCH (06:24)
--- NOTE | 2019-05-22 10:29 | PROGRESS NOTE ---
DATE: 05/22/2019 SUBJECTIVE: There is no family present in the patient's room. I did not find anyone in the waiting room to speak to. I spoke at length with the nurse. She reports the patient was somewhat agitated all night, pulling at things, taking her clothes off, etc., but finally fall asleep around 5:30 this morning. OBJECTIVE: Vital Signs: 89, 20, 125/62, 96% saturated. PHYSICAL EXAMINATION: The patient is asleep at the time of my examination. She was arousable. She tried to answer questions but seemed overall disoriented. She fell back to sleep almost immediately after I disengaged from the conversation.Lungs: Clear to auscultation. Cardiovascular: Irregular at roughly 90 beats per minute at the time of my examination. Extremities: No peripheral edema. LABORATORIES: The only new laboratory studies from yesterday showed a pH of 7.48, pCO2 of 28, PO2 51 and 92% saturated on room air. ASSESSMENT AND PLAN: 1. Magnetic resonance imaging that was scheduled for yesterday did not take place because the patient was on a Cardene drip. She has been weaned off the Cardene drip and her blood pressures are adequate. We will have to pursue magnetic resonance imaging Friday. There were no reported episodes of seizure like activity. 2. There was a set of vital signs in the computer, which showed a heart rate of 38. I discussed this with the nurse and she felt in her conversation with the night nurse that this represented artifactual reading and not a true bradycardia. She stated that during the entire time she is taking care of the patient she has not seen anything remotely resembling bradycardia. 3. Dementia. Aware. 4. The patient's blood pressure seems to be under good control. She is off the Cardene drip. She is going to get her usual blood pressure medications today and will continue to watch this. If necessary, we can put on a Catapres patch to at least get her through the magnetic resonance imaging on Friday. 5. Unfortunately, I think the nearly total care that the patient requires is going to keep her in the ICU for the time being. We will have to make some decisions going down the line about what level of care to continue to provide. I would really like to get the information for the magnetic resonance imaging before making final decision in that regard. 6. We will recheck labs in the morning. cc: Ady Pinto MD
[2019-05-22] MEDS: XARELTO PO SCH (17:00)
[2019-05-22] MEDS: COZAAR PO SCH ×2 (18:11→20:52)
[2019-05-22] MEDS: COREG PO SCH ×2 (18:11→20:51)
[2019-05-23] MEDS: APRESOLINE PO SCH ×3 (04:56→21:03)
[2019-05-23] MEDS: NS 1,000 ML IV SCH ×3 (05:08→21:03)
[2019-05-23] MEDS: PROTONIX PO SCH (06:25)
[2019-05-23 06:35] LABS: EOS# 0.07 X1000 (0.0-0.7); EOS% 1.2 % (0.0-10.0); HEMATOCRIT 32.9 % (37.0-47.0); HEMOGLOBIN 11.3 g/dL (12.0-16.0); LYMPH# 0.86 X1000 (1.2-3.4); LYMPH% 14.5 % (20.5-51.1); MCH 30.3 PG (27-31); MCHC 34.3 g/dL (33-37); MCV 88.2 FL (81-99); MONO# 0.92 X1000 (0.11-0.59); MONO% 15.5 % (1.7-9.3); NEUT% 68.8 % (42.2-75.2); PLT 133 X1000 (130-400); RBC 3.73 XMIL (4.2-5.4); RDW 14.1 % (11.5-14.5); WBC 5.95 X1000 (4.8-10.8)
[2019-05-23 06:50] LABS: ALB/GLOB RATIO 0.9; ALBUMIN 2.6 g/dL (3.5-5.0); CALCIUM 8.3 mg/dL (8.8-10.2); CREATININE 0.9 mg/dL (0.5-0.9); POTASSIUM 2.8 mmol/L (3.5-5.1); TOTAL BILIRUBIN 0.82 mg/dL (0.20-1.00); TOTAL PROTEIN 5.6 g/dL (6.3-8.3)
[2019-05-23] MEDS: COREG PO SCH (08:09)
[2019-05-23] MEDS: COZAAR PO SCH ×2 (08:09→21:03)
[2019-05-23] MEDS ORDERED: CATAPRES-TTS-2 TD SCH (09:15)
[2019-05-23] MEDS: MAG-OX PO SCH (09:32)
[2019-05-23] MEDS: KLOR-CON PO SCH ×2 (09:32→21:02)
--- NOTE | 2019-05-23 09:51 | PROGRESS NOTE ---
DATE: 05/23/2019 SUBJECTIVE: In reviewing overnight findings with the nurse on duty, she reported that the patient had an episode of acute bradycardia/asystole, which lasted only a few seconds. This resulted in about a 15-second seizure-like activity, and the patient recovered fully immediately afterward. She has not had any sedation nor has she been on any seizure medication through the hospitalization. OBJECTIVE: Vital Signs: Last measured temperature was 98.3 degrees, pulse rate is 90 at the time of my examination, respirations are 20, blood pressure 161/74, saturating 99%. Lungs: Clear. Cardiovascular: Irregularly irregular, approximately 90 beats per minute at the time of my examination. Extremities: No peripheral edema. Neuropsychiatric: The patient is alert and responsive. She answers questions. It is difficult to determine her orientation. She stated that she recognized me, but could not tell me my name, but she did say "I have been seeing you for a long time now," which is true. LABORATORY DATA: White cell count 5.9, hemoglobin 11.3. Potassium is 2.8, bicarb 19 which is low, BUN 18, creatinine 0.9. Total protein and albumin are low. ASSESSMENT AND PLAN: 1. The patient's seizure-like activity has now been confirmed with at least one episode of asystole bradycardia. As a result of this, I am going to discontinue any medications that have impact on the heart rate or conduction, including her carvedilol and the as needed labetalol she was getting. She has been off the Cardene drip for some time now. I am going to put her on a Catapres patch and some nifedipine to make sure we do not inhibit sinus node dysfunction. 2. I am going to have to speak with the family, who has thus far been absent during my rounds, about how far we want to take this. At her age, most certainly, they could put in a pacemaker, but given her level of dementia, I am not sure what the wishes of the family would be at this point. 3. MRI is scheduled for Friday. 4. The patient's dementia is at baseline, according to what I saw today. 5. Blood pressure has been fluctuant, but seems to be under reasonable levels of control based on my past experience with this patient. 6. I think until we get the beta-blockade washed out of her system and monitor her heart more, she will need to be in the intensive care unit. I will likely get a Cardiology consultation on Friday if that is what the family desires for me to do. 7. The patient's potassium is low. We will replete this by oral route, along with some magnesium. I am also going to give her some oral bicarbonate since her bicarbonate has been low throughout her hospitalization. We will recheck this in the morning. cc: Ady Pinto MD
[2019-05-23] MEDS: PROCARDIA ER PO SCH (11:22)
[2019-05-23] MEDS: XARELTO PO SCH (17:00)
[2019-05-23] MEDS: SODIUM BICARBONATE PO SCH (21:03)
[2019-05-24] MEDS: PROTONIX PO SCH ×2 (05:36→06:02)
[2019-05-24] MEDS: APRESOLINE PO SCH ×3 (05:36→20:25)
[2019-05-24 06:27] LABS: BASO# 0.01 X1000 (0.0-0.2); BASO% 0.1 % (0.0-0.8); EOS% 1.8 % (0.0-10.0); HEMOGLOBIN 11.7 g/dL (12.0-16.0); IMM GRAN# 0.02 X1000 (0.0-0.04); IMM GRAN% 0.3 % (0.0-0.5); MPV 10.3 FL (7.4-10.4)
[2019-05-24 07:15] LABS: AGAP 11; BUN 17 mg/dL (8-22); CALCIUM 8.4 mg/dL (8.8-10.2); CHLORIDE 108 mmol/L (98-107); COSMO 282; CREATININE 0.8 mg/dL (0.5-0.9); ESTIMATED GFR > 60; GLUCOSE 114 mg/dL (70-104); MAGNESIUM 1.6 mg/dL (1.5-2.7); POTASSIUM 3.8 mmol/L (3.5-5.1); SODIUM 140 mmol/L (136-145); TCO2 21 mmol/L (25-35)
[2019-05-24 07:41] LABS: EOS# 0.13 X1000 (0.0-0.7); HEMATOCRIT 33.9 % (37.0-47.0); LYMPH% 15.3 % (20.5-51.1); MCH 30.6 PG (27-31); MCHC 34.5 g/dL (33-37); MCV 88.7 FL (81-99); MONO# 0.99 X1000 (0.11-0.59); MONO% 13.8 % (1.7-9.3); NEUT# 4.95 X1000 (1.4-6.5); NEUT% 68.7 % (42.2-75.2); PLT 153 X1000 (130-400); RBC 3.82 XMIL (4.2-5.4); RDW 14.3 % (11.5-14.5)
[2019-05-24] MEDS: NS 1,000 ML IV SCH (08:39)
[2019-05-24] MEDS: PROCARDIA ER PO SCH (08:40)
[2019-05-24] MEDS: MAG-OX PO SCH (08:41)
[2019-05-24] MEDS: COZAAR PO SCH ×2 (08:41→20:25)
[2019-05-24] MEDS: SODIUM BICARBONATE PO SCH ×2 (08:41→20:23)
[2019-05-24] MEDS: KLOR-CON PO SCH ×2 (08:41→20:24)
--- NOTE | 2019-05-24 08:53 | PROGRESS NOTE ---
DATE: 05/24/2019 SUBJECTIVE: The patient states that she does not feel well today. She cannot specify as to whether she is hurting or nauseated. She repeats the same thing to her family. There were no episodes of bradycardia or asystole reported last night. OBJECTIVE: Vital Signs: Pulse rate 87, blood pressure 138/76, respirations are 16. She is on 2 L nasal cannula. Lungs: Clear. Cardiovascular: Regular. Neuropsychiatric: The patient is alert. She is at her baseline level of orientation. She is communicating, and her speech is clear. LABORATORY DATA: White cells 7.2, hematocrit 34. Potassium is 3.8, BUN 17, creatinine 0.8, blood sugar 114. ASSESSMENT AND PLAN: 1. The patient has had no other seizure-like activity, nor has she had any episodes of asystole or significant bradycardia. The patient is off of any medications which would impact heart rate or conduction. Blood pressure seems stable. She is not on a Cardene drip. 2. The patient's family has decided that if pacemaker is appropriate, they would like to pursue this avenue. 3. I do not think at her present level of activity and the fact that she is sometimes uncooperative would lend itself towards getting an MRI today. I am going to discontinue that order. 4. Dementia is at baseline. 5. I am going to discontinue the Dior catheter, and get her up in the chair today. 6. Potassium is in the process of being repleted, and is back to a more manageable level at present. 7. Consultation for Dr. Devyn Quintero as to pacemaker placement. 8. Long-term placement. The family has requested an assisted living situation. cc: Ady Pinto MD
[2019-05-24] MEDS ORDERED: LOVENOX 1 MG/KG SUBQ SCH (11:00)
[2019-05-24] MEDS ORDERED: LOVENOX SUBQ SCH (11:30)
--- NOTE | 2019-05-24 11:45 | CARDIOLOGY CONSULTATION ---
DATE: 05/24/2019 CHIEF COMPLAINT ON ORIGINAL PRESENTATION: A fall. HISTORY OF PRESENT ILLNESS: Ms. Cadena is an 88-year-old, white female who has a history of hypertension and apparent chronic atrial fibrillation, normally followed by Dr. Pinto. As well, she is followed by Dr. Cook for a history of lymphoma. This past Friday, she was at home in her usual state of health. She has a fairly significant degree of dementia. She lives at home but has family members who live with her. She apparently had a fall but there is an unclear reason as to why this happened. The patient cannot give any history related to this and it was not witnessed by any family members. There was an apparent episode of seizure activity occurring during the course of the hospitalization but I have limited documentation to support this. She did have an episode of ventricular standstill occurring on the at around 6:15 p.m. Apparently, this corresponded to an episode of seizure activity. PAST MEDICAL HISTORY: Significant for: 1. Hypertension. 2. Reflux disease. 3. Follicular lymphoma, being followed by Dr. Asia Cook. 4. Chronic atrial fibrillation, maintained on Xarelto. 5. Osteoporosis. 6. Dementia. Apparent baseline is recognition of her name and some family members. Family reports she requires essentially full care. SOCIAL HISTORY: She lives with family at her home. She has 6 children. No alcohol. No tobacco. FAMILY HISTORY: Unable to be obtained per the patient's dementia. REVIEW OF SYSTEMS: Unable to be obtained per the patient's dementia. PHYSICAL EXAMINATION: She is afebrile, heart rate of 81, blood pressure 130/59. General: She is in no acute distress. HEENT: Oropharynx is moist. Poor dentition. Eye examination shows pink conjunctivae and white sclerae. Neck: Examination shows no obvious thyromegaly or thyroid tenderness. Cardiovascular: She sounds to be in a regular rate and rhythm. She has no obvious murmurs. She has no S3 present. She has no lower extremity edema. Chest Examination: Sounds clear bilaterally. She has no increased work of breathing. Abdomen: Soft, nontender, nondistended. She has no obvious organomegaly. Skin Examination: Warm and dry throughout. Neurological: She seems to be moving all extremities well. She has no lateralizing deficits. PERTINENT DATA: Her EKG on the shows atrial fibrillation, rate of 78 beats per minute. She had a telemetry strip on the that demonstrates a long episode of ventricular standstill roughly lasting around 17 seconds. Apparently, this was associated with an episode of seizure activity. Her white count is 7.2, her hematocrit is 33, her platelet count is 153,000. Her sodium is 140, potassium is 3.8, BUN 17, creatinine 0.8. Her magnesium level is 1.6. Her TSH was normal on the She had an echocardiogram demonstrating an EF of 60%. RV systolic pressure of 70 to 75. She had moderate pulmonic insufficiency, very small circumferential pericardial effusion. ASSESSMENT: Ms. Cadena is an 88-year-old female who had an episode of ventricular standstill corresponding to some seizure activity. PLAN: At this point, we will have a discussion with the EP service over in [place] for consideration of pacemaker implant. We will likely try to transfer the patient over on to the hospitalist service considering this and continue to try to hold AV jinny blocking agents presently. cc: MD Ady Waldrop MD
[2019-05-24] MEDS: STERILE WATER INJ. INJ PRN (14:15)
[2019-05-24] MEDS: GEODON IM PRN (14:15)
--- NOTE | 2019-05-24 15:37 | PROGRESS NOTE ---
DATE: 05/24/2019 Ms. Cadena had documented period of asystole associated with some of her seizure-like behavior. In that setting, I do not think we need to add medicine for seizure control. We can reconsider if she has episodes which appear unrelated to heart rhythm. Thanks for asking Neurology to see Ms. Cadena. cc: MD Ady Ortega III, MD MTDD
[2019-05-24] MEDS: CATAPRES PO PRN (17:22)
[2019-05-24 21:39] VITALS: BP 149/70
--- NOTE | 2019-05-26 06:14 | DISCHARGE SUMMARY ---
ADMISSION DATE: 05/19/2019 DISCHARGE DATE: 05/24/2019 DISCHARGE DIAGNOSES: 1. Asystole with neurological signs. 2. Sick sinus syndrome. 3. Alzheimer's dementia. 4. Chronic atrial fibrillation. 5. Long-term use of anticoagulants. 6. Follicular lymphoma. 7. Osteoporosis. 8. Hypertension. CONSULTATIONS: Devyn Quintero MD and Juyd Tim MD PROCEDURES: 1. Echocardiogram. 2. Carotid Doppler. 3. EEG. HOSPITAL COURSE: An 88-year-old white female with a host of medical problems presented with general lethargy. The patient's family reported episodes where she would have brief incidents where she would shake, and be unresponsive for a number of seconds and then come back. They also said that she had general lethargy, and that she required almost constant supervision and actually requested assisted living. During the ER stay, the family noted that there were episodes of no signal on the heart monitor, and this would always correlate with one of these brief episodes. This was not reported to me from the emergency room. We spent the next several days during her hospitalization trying to recover from the large dose of Ativan that she was given in the emergency room, and also awaiting any further evidence of cardiac dysrhythmia. After a number of days, the patient had to a great degree recovered her sensorium, and was operating close to her baseline as far as levels of orientation. She then had a single episode on one night of complete asystole lasting several seconds. She had that brief seizure- like activity, but then recovered fully. I discussed multiple comorbidities with the patient's family, and explained that I would support them in whatever decision that they made, but that a pacemaker would likely be the only resolution to that particular problem. Initially, the family thought that a pacemaker would not be a great idea, but the following morning they came back and said they desired for her to be transferred to [place] for pacemaker. I consulted Dr. Devyn Quintero who was in agreement, and made arrangements for transfer to [place]. She was transferred late in the evening on the . Arrangements for assisted living likely have to be made on outpatient basis when she returns from this hospitalization. cc: Ady Pinto MD
== END 2019-05-24 21:20 | disposition short-term general hospital (02) | DRG 308 ==
LOC: SUPCPDRO → ED 17:20 → ICU 23:39 → SUATTDRO 23:39
PROVIDERS: ADMIT Internal Medicine; ATTEND Internal Medicine

== ENCOUNTER 2019-09-01 17:09 | Inpatient (IN) ==
[2019-09-01 19:15] LABS: BASO# 0.02 X1000 (0.0-0.2); BASO% 0.5 % (0.0-0.8); EOS# 0.12 X1000 (0.0-0.7); EOS% 2.7 % (0.0-10.0); HEMATOCRIT 34.1 % (37.0-47.0); HEMOGLOBIN 10.9 g/dL (12.0-16.0); LYMPH# 1.57 X1000 (1.2-3.4); LYMPH% 35.4 % (20.5-51.1); MCH 28.8 PG (27-31); MONO# 0.52 X1000 (0.11-0.59); MONO% 11.7 % (1.7-9.3); MPV 9.4 FL (7.4-10.4); NEUT% 49.7 % (42.2-75.2); PLT 153 X1000 (130-400); RBC 3.79 XMIL (4.2-5.4); RDW 13.8 % (11.5-14.5); WBC 4.43 X1000 (4.8-10.8)
[2019-09-01] MEDS ORDERED: APRESOLINE IV ONE (19:16)
[2019-09-01 19:35] LABS: INR 1.11; PROTIME 14.5 Seconds (11.0-16.0)
[2019-09-01 19:48] LABS: PTT 29.4 Seconds (22.3-41.8)
[2019-09-01 20:05] LABS: ALB/GLOB RATIO 1.3; ALBUMIN 3.7 g/dL (3.5-5.0); CALCIUM 8.9 mg/dL (8.8-10.2); CREATININE 1.3 mg/dL (0.5-0.9); POTASSIUM 4.4 mmol/L (3.5-5.1); TOTAL BILIRUBIN 0.32 mg/dL (0.20-1.00); TOTAL PROTEIN 6.6 g/dL (6.3-8.3)
--- NOTE | 2019-09-01 20:12 | Diag Imaging Result Doc PS360 ---
EXAM: CT HEAD W/O CONTRAST INDICATION: near syncope TECHNIQUE: This exam was performed using automated exposure control, adjustment of mA or kV according to patient size, and/or use of iterative reconstruction technique. COMPARISON: 05/19/2019 FINDINGS: There is patchy low attenuation in the periventricular and subcortical white matter suggesting moderate microangiopathy, stable. There is no definite acute infarct given the limited sensitivity of CT versus MRI. There is no discrete intracranial mass, mass effect, or intracranial hemorrhage. There is moderate sphenoid sinus mucosal disease. Surrounding soft tissues and bony structures are essentially unremarkable, otherwise. IMPRESSION: Stable chronic appearing white matter changes. No definite acute intracranial pathology. Electronically signed by Marko Guerra 09/01/2019 8:09 PM
[2019-09-01] MEDS ORDERED: ASPIRIN PO ONE (20:16)
--- NOTE | 2019-09-01 20:44 | Diag Imaging Result Doc PS360 ---
EXAM: CHEST-1 VIEW INDICATION: cough, near syncope TECHNIQUE: One view COMPARISON: 05/28/2019 FINDINGS: There is suggestion of mild pulmonary venous congestion. No discrete airspace consolidation is identified by plain radiograph. There is no discrete pleural fluid collection or pneumothorax. There is stable cardiomegaly. IMPRESSION: Stable cardiomegaly and suggestion of mild pulmonary venous congestion. Electronically signed by Marko Guerra 09/01/2019 8:42 PM
[2019-09-01 20:57] LABS: URINE SOURCE CATH
[2019-09-01 21:07] LABS: BILIRUBIN URINE NEGATIVE (NEGATIVE); BLOOD URINE NEGATIVE (NEGATIVE); COLOR YELLOW; GLUCOSE URINE NEGATIVE (NEGATIVE); KETONE URINE NEGATIVE (NEGATIVE); LEUKOCYTES URINE NEGATIVE (NEGATIVE); NITRITE URINE NEGATIVE (NEGATIVE); PH URINE 6.5; PROTEIN URINE 30 mg/dL (NEGATIVE); SP GRAVITY URINE 1.022; TURBIDITY URINE CLEAR (CLEAR); UROBILINOGEN URINE NORMAL (NORMAL)
[2019-09-01 21:08] LABS: UR EPITHELIAL CELLS <10 /HPF (<10); URINE BACTERIA NEGATIVE /HPF; URINE RBC <10 /HPF (<10); URINE WBC <10 /HPF (<10)
--- NOTE | 2019-09-01 22:16 | PROVIDER DOCUMENTATION ---
This chart was entered by Jeniffer Guerra Scribe, acting as scribe for Roxana Vides CRNP. HPI-Syncope/Dizziness - General Chief Complaint: Near Syncope Stated Complaint: SYNCOPE Time Seen by Provider: 09/01/19 18:20 Source: family Allergies/Adverse Reactions: Patient Allergies Allergy/AdvReac Type Severity Reaction Status Date / Time No Known Allergies Allergy Verified 04/29/17 19:49 Home Medications: Home Medication List Medication Instructions Recorded Confirmed Last Taken Type Acetaminophen 325 mg PO Q4H PRN 09/01/19 09/01/19 Unknown History Apixaban [Eliquis] 2.5 mg PO BID 09/01/19 09/01/19 Unknown History Azithromycin [Zithromax] 250 mg PO DAILY 09/01/19 09/01/19 Unknown History Azithromycin [Zithromax] 250 mg PO DAILY 09/01/19 09/01/19 Unknown History Carvedilol [Coreg] 6.25 mg PO BID 09/01/19 09/01/19 Unknown History Cefuroxime Axetil [Cefuroxime] 500 mg PO BID 09/01/19 09/01/19 Unknown History Cefuroxime Axetil [Cefuroxime] 500 mg PO DAILY 09/01/19 09/01/19 Unknown History Clonidine [Catapres] 0.1 mg PO DAILY 09/01/19 09/01/19 Unknown History Furosemide 40 mg PO DAILY 09/01/19 09/01/19 Unknown History Hydralazine [Apresoline] 25 mg PO TID 09/01/19 09/01/19 Unknown History Lorazepam 0.5 mg PO BID 09/01/19 09/01/19 Unknown History Losartan [Cozaar] 50 mg PO DAILY 09/01/19 09/01/19 Unknown History Magnesium Hydroxide [Milk of 500 mg PO DAILY PRN 09/01/19 09/01/19 Unknown History Magnesia] Omeprazole 40 mg PO DAILY 09/01/19 09/01/19 Unknown History - History of Present Illness-Syncope/Dizzy Nature of Presenting Problem: pt is an 88 yof presenting w/family to er via EMS w/cc near syncope x 2 todays. [facility] a [facility] a [facility] [place]. family sts pt was seen [place] [facility] [place] ago for near syncope, dx w/PNA and sent home on oral antibiotics. pt has a cough. hx of dementia. alerted to self only. Family states mental status is at baseline. Prior Episodes: reports: multiple episodes today (x2), recent history Onset/Duration: reports: just prior to arrival Timing: reports: still present Symptoms prior to episode: reports: none Context: reports: unknown Location of injury. (If syncope resulted in an injury.): reports: none Current Symptoms: reports: none/feels normal Recently Seen Here or By Another Healthcare Provider: Yes ([facility] 2 days ago for syncope, dx PNA) Review of Systems - Adult - REVIEW OF SYSTEMS - ADULT Constitutional: reports: no symptoms reported. denies: fever, fatique, night sweats Eyes: reports: no symptoms reported Ears, Nose, Mouth & Throat: reports: no symptoms reported Cardiovascular: reports: no symptoms reported Respiratory: reports: see HPI, cough. denies: dyspnea on exertion, shortness of breath, wheezing Gastrointestinal: reports: no symptoms reported Genitourinary: reports: no symptoms reported Musculoskeletal: reports: no symptoms reported Integumentary: reports: no symptoms reported Neurological: reports: see HPI, syncope. denies: ataxia, dizziness/vertigo, n umbness, paresthesia Psychiatric: reports: no symptoms reported Endocrine: reports: no symptoms reported Hematologic/Lymphatic: reports: no symptoms reported Allergic/Immunologic: reports: no symptoms reported All Other Systems: Reviewed and Negative Past History - Adult - PAST MEDICAL HISTORY-ADULT Review of Records: reports: Nursing Assessment Review, Medications Reviewed, Social history reviewed & non-contributory. Major Childhood Illnesses: reports: denies history Cardiovascular: reports: cardiac disease, A-Fib, CHF, HTN, hyperlipidemia Respiratory: reports: cancer (lung). denies: asthma, COPD, pneumonia, sleep apnea, tuberculosis Gastrointestinal: reports: GERD. denies: cholelithiasis, ulcer Obstetrical/Gynecological: reports: denies history Genitourinary: reports: other (acute renal failure). denies: dialysis Musculoskeletal: reports: arthritis Neurological: reports: dementia. denies: CVA, Seizures/Epilepsy Psychiatric: reports: denies history Endocrine/Immune: reports: Diabetes (borderline), other (hyperkalemia) Other Conditions: reports: eye problems/injury (difficulty with her eyes), other (hypovolemia, arthralgias) - PRIOR SURGERIES/PROCEDURES Surgical/Procedure History: reports: appendectomy, cholecystectomy, hysterectomy , esophageal dilation, orthopedic (extremity) (foot), joint replacement (Right knee replacement) - PRIOR HOSPITALIZATIONS Prior Hospitalizations: reports: none - IMMUNIZATION STATUS Childhood Immunizations: UTD Flu Vaccine: UTD - FAMILY HISTORY Family History: reviewed, not pertinent - SOCIAL HISTORY Smoking: non-smoker Substance Use: none/never Physical Exam-General - PHYSICAL EXAM-ADULT Initial Vital Signs Reviewed: Yes - CONSTITUTIONAL General Appearance: alert, no apparent distress. negative: cachetic, anxious, lethargic - EYES Eyes: PERRL/EOMI, pink conjunctivae - HEAD, EARS, NOSE, MOUTH & THROAT HENMT: normocephalic/atraumatic, moist mucous membranes, normal ENT inspection - NECK Neck: non-tender, full range of motion, supple, normal inspection - RESPIRATORY Respiratory: chest non-tender, lungs clear, normal breath sounds, no pleuratic chest pain, no respiratory distress, no accessory muscle use. negative: respiratory distress, decreased breath sounds, accessory muscle use - CARDIOVASCULAR Cardiovascular: normal peripheral pulses, regular rate, rhythm - GASTROINTESTINAL (ABDOMEN) Abdominal Exam: normal bowel sounds, non tender, soft - MUSCULOSKELETAL Back Exam: normal inspection Extremity: normal range of motion, non-tender, normal inspection - SKIN Integumentary: normal color, normal turgor, warm/dry - NEUROLOGIC Neurologic: grossly normal, no motor/sensory deficits, other (pt baseline dementia) - PSYCHIATRIC Psych/Mental Status: normal mood/affect, normal thought content, normal thought process. negative: oriented x 3 (jeff to self only), anxious, disheveled, depressed affect Progress - PLAN OF CARE/RESULTS Progress/Plan/Lab Results: Vital Signs - 8 hr 09/01/19 18:06 09/01/19 18:07 09/01/19 18:11 Temperature 97.8 F Pulse Rate 77 84 80 Pulse Rate [Standing] Pulse Rate [Supine] Respiratory Rate 24 19 21 Blood Pressure 129/81 129/81 Blood Pressure [Standing] Blood Pressure [Supine] O2 Sat by Pulse Oximetry 99 99 99 09/01/19 18:15 09/01/19 18:30 09/01/19 18:45 Temperature Pulse Rate 80 85 77 Pulse Rate [Standing] Pulse Rate [Supine] Respiratory Rate 22 22 20 Blood Pressure Blood Pressure [Standing] Blood Pressure [Supine] O2 Sat by Pulse Oximetry 99 100 100 09/01/19 19:00 09/01/19 19:02 09/01/19 19:03 Temperature Pulse Rate 78 80 79 Pulse Rate [Standing] Pulse Rate [Supine] Respiratory Rate 20 19 20 Blood Pressure 201/87 194/80 Blood Pressure [Standing] Blood Pressure [Supine] O2 Sat by Pulse Oximetry 100 99 99 09/01/19 19:05 09/01/19 19:14 09/01/19 19:31 Temperature Pulse Rate 82 83 Pulse Rate [Standing] Pulse Rate [Supine] Respiratory Rate 19 18 Blood Pressure 200/101 208/105 213/88 Blood Pressure [Standing] Blood Pressure [Supine] O2 Sat by Pulse Oximetry 99 100 09/01/19 19:46 09/01/19 20:01 09/01/19 20:16 Temperature Pulse Rate 81 89 95 H Pulse Rate [Standing] Pulse Rate [Supine] Respiratory Rate 24 21 20 Blood Pressure 172/82 196/76 189/85 Blood Pressure [Standing] Blood Pressure [Supine] O2 Sat by Pulse Oximetry 99 98 98 09/01/19 20:31 09/01/19 20:46 09/01/19 21:01 Temperature Pulse Rate 92 H 85 82 Pulse Rate [Standing] Pulse Rate [Supine] Respiratory Rate 19 22 19 Blood Pressure 195/76 173/76 197/76 Blood Pressure [Standing] Blood Pressure [Supine] O2 Sat by Pulse Oximetry 99 98 99 09/01/19 21:16 09/01/19 21:31 09/01/19 21:35 Temperature Pulse Rate 89 98 H 115 H Pulse Rate [Standing] Pulse Rate [Supine] Respiratory Rate 20 21 23 Blood Pressure 172/100 178/73 180/90 Blood Pressure [Standing] Blood Pressure [Supine] O2 Sat by Pulse Oximetry 98 97 96 09/01/19 21:46 09/01/19 21:53 Temperature Pulse Rate 97 H Pulse Rate [Standing] 103 H Pulse Rate [Supine] 102 H Respiratory Rate 22 Blood Pressure 197/95 Blood Pressure [Standing] 180/90 Blood Pressure [Supine] 178/73 O2 Sat by Pulse Oximetry 96 Laboratory Results - last 24 hr 09/01/19 09/01/19 09/01/19 18:18 19:00 19:00 WBC 4.43 L RBC 3.79 L Hgb 10.9 L Hct 34.1 L MCV 90.0 MCH 28.8 MCHC 32.0 L RDW Std Deviation 13.8 Plt Count 153 MPV 9.4 Immature Gran % (Auto) 0.0 Neut % (Auto) 49.7 Lymph % (Auto) 35.4 [place] % (Auto) 11.7 H Eos % (Auto) 2.7 Baso % (Auto) 0.5 Immature Gran # (Auto) 0.00 Neut # (Auto) 2.20 Lymph # (Auto) 1.57 [place] # (Auto) 0.52 Eos # (Auto) 0.12 Baso # (Auto) 0.02 PT 14.5 INR 1.11 PTT (Actin FS) 29.4 Sodium Potassium Chloride Carbon Dioxide Anion Gap BUN Creatinine Estimated GFR/1.73 m2 BUN/Creatinine Ratio Glucose POC Glucose 105 H Calculated Osmolality Calcium Total Bilirubin AST ALT Alkaline Phosphatase Troponin T High Sens Total Protein Albumin Globulin Albumin/Globulin Ratio Urine Source Urine Color Urine Turbidity Urine pH Ur Specific [place] Urine Protein Ur Glucose (Stick) Ur Ketones (Stick) Urine Blood Urine Nitrite Urine Bilirubin Urobilinogen Dipstick Urine Leukocytes Urine WBC (Auto) Urine RBC (Auto) U Epithel Cells (Auto) Urine Bacteria (Auto) 09/01/19 09/01/19 09/01/19 19:00 19:00 20:38 WBC RBC Hgb Hct MCV MCH MCHC RDW Std Deviation Plt Count MPV Immature Gran % (Auto) Neut % (Auto) Lymph % (Auto) [place] % (Auto) Eos % (Auto) Baso % (Auto) Immature Gran # (Auto) Neut # (Auto) Lymph # (Auto) [place] # (Auto) Eos # (Auto) Baso # (Auto) PT INR PTT (Actin FS) Sodium 139 Potassium 4.4 Chloride 100 Carbon Dioxide 27 Anion Gap 12 BUN 28 H Creatinine 1.3 H Estimated GFR/1.73 m2 39 BUN/Creatinine Ratio 22 Glucose 102 POC Glucose Calculated Osmolality 283 Calcium 8.9 Total Bilirubin 0.32 AST 21 ALT 13 Alkaline Phosphatase 110 H Troponin T High Sens 28 H* Total Protein 6.6 Albumin 3.7 Globulin 2.9 Albumin/Globulin Ratio 1.3 Urine Source CATH Urine Color YELLOW Urine Turbidity CLEAR Urine pH 6.5 Ur Specific [place] 1.022 Urine Protein 30 A Ur Glucose (Stick) NEGATIVE Ur Ketones (Stick) NEGATIVE Urine Blood NEGATIVE Urine Nitrite NEGATIVE Urine Bilirubin NEGATIVE Urobilinogen Dipstick NORMAL Urine Leukocytes NEGATIVE Urine WBC (Auto) <10 Urine RBC (Auto) <10 U Epithel Cells (Auto) <10 Urine Bacteria (Auto) NEGATIVE Orders Category Date Time Status Cardiac Monitoring DIRECTED Care 09/01/19 18:44 Active Nursing- Obtain EKG ONCE Care 09/01/19 18:46 Active Orthostatic Vital Signs NOW Care 09/01/19 18:48 Active CHEST-1 VIEW [RAD] Stat Exams 09/01/19 18:[address] HEAD W/O CONTRAST [CT] Stat Exams 09/01/19 18:44 Completed CBC WITH DIFF [HEME] Stat Lab 09/01/19 19:00 Completed COMPREHENSIVE METABOLIC PANEL [CHEM] Stat Lab 09/01/19 19:00 Completed PROTIME WITH INR [COAG] Stat Lab 09/01/19 19:00 Completed PTT [COAG] Stat Lab 09/01/19 19:00 Completed TROPONIN T HIGH SENSITIVITY Stat Lab 09/01/19 19:00 Completed UA NIMS W/REFLEX CULT [URINALYSIS] Stat Lab 09/01/19 20:38 Completed Aspirin Med 09/01/19 20:16 Discontinued 325 mg PO NOW ONE Hydralazine [Apresoline] Med 09/01/19 19:16 Discontinued 5 mg IV NOW ONE EKG [EKG] Stat Ther 09/01/19 18:44 Ordered Result Diagrams: 09/01/19 19:00 09/01/19 19:00 - REASSESSMENT Reassessment #1 Time Reassessed: 22:14 Status: other (Family in agreement with admission plan. [facility]- Dr. Scott aware.) - EKG 1 Time of EKG reading by physician:: 19:08 EKG Read and Signed by:: Brodie Salinas EKG Interpretation (*Must complete 3 of following elements*): Abnormal Rate: 81 Rhythm: Afib [place]: normal QRS: normal ST Wave: normal - XRAY 1 XRAY Study: Chest Impression: See EMR Report (EXAM: CHEST-1 VIEW INDICATION: cough, near syncope TECHNIQUE: One view COMPARISON: 05/28/2019 FINDINGS: There is suggestion of mild pulmonary venous congestion. No discrete airspace consolidation is identified by plain radiograph. There is no discrete pleural fluid collection or pneumothorax. There is stable cardiomegaly. IMPRESSION: Stable cardiomegaly and suggestion of mild pulmonary venous congestion. Electronically signed by Marko Guerra 09/01/2019 8:42 PM) - CT/MRI 1 CT Study: Head Impression: See EMR Report (EXAM: CT HEAD W/O CONTRAST INDICATION: near syncope TECHNIQUE: This exam was performed using automated exposure control, adjustment of mA or kV according to patient size, and/or use of iterative reconstruction technique. COMPARISON: 05/19/2019 FINDINGS: There is patchy low attenuation in the periventricular and subcortical white matter suggesting moderate microangiopathy, stable. There is no definite acute infarct given the limited sensitivity of CT versus MRI. There is no discrete intracranial mass, mass effect, or intracranial hemorrhage. There is moderate sphenoid sinus mucosal disease. Surrounding soft tissues and bony structures are essentially unremarkable, otherwise. IMPRESSION: Stable chronic appearing white matter changes. No definite acute intracranial pathology. Electronically signed by Marko Guerra 09/01/2019 8:09 PM) - CONSULTS/PCP/HOSPITALIST Notification #1 *Consult/PCP/Hospitalist*: Dr. Scott Time Discussed: 22:13 Reason/Comments: admission- syncope, elevated troponin, URI Consult Disposition: Admit Departure - Departure Date of Disposition Decision: 09/01/19 Time of Disposition Decision: 22:13 DIAGNOSIS: Elevated troponin Syncope Qualifiers: Syncope type: unspecified Qualified Code(s): R55 - Syncope and collapse Upper respiratory infection Qualifiers: URI type: unspecified URI Qualified Code(s): J06.9 - Acute upper respiratory infection, unspecified Disposition: ADMITTED INPATIENT 09 Certified Medical Emergency: Emergent Condition: Stable Referrals and Follow-Ups: Ady Pinto MD [Primary Care Provider] - - Critical Care Note This patient required my direct & personal management of CC.: No Attestation - Physician/ BEBETO Attestation Patient care was provided by Advanced Practice Provider:: Yes Advanced Practice Provider:: Roxana Vides Advanced Practice Provider documentation review:: The Mid-level provider documentation, treatment plan and medical decision making was reviewed by the physician who agrees with all treatment and medical decision making by the [facility]. The physician spent face to face time with patient:: No Advanced Practice Provider documentation review:: Supervising physician onsite and consulted in the evaluation and care of this patient. The physician did not have a face to face encounter with the patient. This chart was documented by the indicated scribe, (Jeniffer Guerra, Emilia) and accurately reflects the services I performed and decisions made by , Roxana Vides CRNP, as attested by the provider's signature.
[2019-09-01] MEDS ORDERED: MELATONIN PO ONE (23:10)
[2019-09-01] MEDS ORDERED: MAALOX PLUS LIQUID PO ONE (23:11)
[2019-09-01] MEDS ORDERED: ATIVAN PO SCH (23:58)
[2019-09-01] MEDS ORDERED: MILK OF MAGNESIA PO PRN (23:58)
[2019-09-01] MEDS ORDERED: ZOFRAN IV PRN (23:58)
[2019-09-01] MEDS ORDERED: TYLENOL PO PRN (23:58)
[2019-09-01] MEDS ORDERED: NS 1,000 ML IV SCH (23:58)
--- NOTE | 2019-09-02 00:31 | HISTORY AND PHYSICAL ---
PRIMARY CARE PHYSICIAN: Dr. Ady Pinto. REASON FOR ADMISSION: Questionable syncopal events. HISTORY OF PRESENT ILLNESS: Ms. Danielle Cadena is an 88-year-old woman with past medical history of, I believe, bradyarrhythmia, status post pacemaker placement, hypertension, dementia, possibly vascular in nature, chronic atrial fibrillation, osteoporosis. She comes in today from her snf, i.e. [facility], because of repeated "passing-out spells." This is the patient's 4th visit to an ER in the space of 1 month. Her last visit was 2 days ago, [facility] at [facility], where they did a CT of the head and a CT PE which showed no PE, but "a touch of pneumonia shows." She was prescribed Ceftin and Zithromax. Family was called today because they said she had multiple episodes where she would slump in the chair, but the nursing staff would promptly wake her up and she will come out of the state of somnolence. The family said there was no reported facial drooping, slurred speech on each occasion this has happened over the last 1 month. The daughter reports no fever or chills. By the way, the patient is unable to give any history because she has dementia. When I asked the patient if she had any pain, any symptoms, she said she feels fine, but she did admit to having occasional pain in her right leg and the family noticed that every now and again she will grab her leg. REVIEW OF SYSTEMS: Somewhat limited due to the patient's cognitive limitations, but the family report no vomiting or diarrhea or belly pain. ALLERGIES: No known allergies. HOME MEDICATIONS: The patient takes Tylenol 325 mg q.4h p.r.n., hydralazine 25 mg t.i.d., clonidine 0.1 mg daily. She is on Ceftin 500 mg b.i.d., Coreg 6.25 mg b.i.d., Cozaar 50 mg daily, Eliquis 2.5 mg b.i.d., Lasix 40 mg daily, Lorazepam 0.5 mg b.i.d., magnesium hydroxide 500 mg daily, omeprazole 40 mg daily and Zithromax 250 mg daily. SURGICAL HISTORY: Patient has had appendectomy and pacemaker placement, bilateral knee surgery, bladder tack. FAMILY HISTORY: Notable for epilepsy in dad and daughter, heart disease. SOCIAL HISTORY: Resident of [facility]. Does not smoke, drink, or use drugs. LABORATORY WORK: White count 4000, hemoglobin and hematocrit 10 and 34, platelets 153,000. BUN is 20, creatinine 1.3. Troponin is 28. Alkaline phosphatase 110, PT and PTT is normal. Urinalysis is clean. Chest film showed cardiomegaly with borderline mild increased vascular markings with cephalization. Head CT shows no acute intracranial process. Stable chronic white matter changes noted. EKG not available for review at this time. PHYSICAL EXAMINATION: VITAL SIGNS: Blood pressure is 191/70, heart rate 98, respirations 20, temperature is 97.8 degrees, O2 saturation 97%. Family informed me that she does tend to have fluctuating blood pressures and this is something chronic. GENERAL: She is a pleasant, elderly, woman who is alert, but towards the end of my interview was very drowsy because the family says he has been sleeping very well. HEENT: Head is normocephalic, atraumatic. Eyes: ELVIN, EOMI. She is anicteric and not pale. ENT: Grossly normal. NECK: Supple. She has noticeable JVD and positive hepatojugular reflux. No bruit or thyromegaly. CHEST: Clear when auscultated. CARDIOVASCULAR: First and 2nd sounds heard. No gallops, rubs. Rhythm is regular with occasional skipped beats. ABDOMEN: Scaphoid, soft with mild epigastric tenderness. No rebound or guarding. Bowel sounds are normal. RECTAL: Deferred at this time. EXTREMITIES: The patient has no thickened cords or focal areas of tenderness. No edema, clubbing or peripheral cyanosis. Good distal pulse volume. NEUROLOGICAL: No focal deficits appreciated. Cranial nerves 2-12 are intact. SKIN: Intact. No breakdown, lesion, erythema. MUSCULOSKELETAL: Grossly normal. ASSESSMENT: 1. Questionable syncopal episode versus sleep deprivation. 2. Mild diastolic congestive heart failure. 3. Hypertensive heart disease with mild heart failure. 4. Vascular dementia. 5. Atrial fibrillation, on chronic anticoagulation. 6. Follicular lymphoma, stable. PLAN: Our goal is to ensure patient gets sleep tonight and keep patient awake all day to avoid reversal of sleep cycle. We will give patient a low dose of Lasix to encourage modest diuresis based on chest film and clinical picture. This will be given very early in the morning as opposed to now (late tonight), so the patient can sleep overnight. The patient will be monitored with telemetry, although I suspect that this may not yield anything as I still am not convinced this is of a cardiac nature, but more due to the fact that the patient seems somewhat sleep deprived. We will continue antihypertensives. My suggestion will be to discontinue the high- dose omeprazole and treat, as there are some small study suggesting that chronic PPIs can actually contribute to increased risk for worsening dementia. Other differential to be considered here is possibility of nonconvulsive seizure. She has a strong family of epilepsy and sleep deprivation in and of itself could also increase the risk of this. Discontinue antibiotics prescribed because I am not convinced the patient has pneumonia. cc: MD Ady Meadows MD MTDD
[2019-09-02] MEDS ORDERED: LASIX IV ONE (06:00)
[2019-09-02] MEDS: PRILOSEC PO SCH (06:30)
--- NOTE | 2019-09-02 07:42 | EKG Report ---
Test Performed on : 09/01/2019 6:29:19 PM Test Reason : near syncope Blood Pressure : / mmHG Vent. Rate : 081 BPM Atrial Rate : 092 BPM P-R Int : 000 ms QRS Dur : 100 ms QT Int : 378 ms P-R-T Axes : 000 056 044 degrees QTc Int : 439 ms Atrial fibrillation. Abnormal ECG When compared with ECG of 28-MAY-2019 20:07, (Unconfirmed) No significant change was found Unconfirmed Result
[2019-09-02 08:43] LABS: BASO# 0.02 X1000 (0.0-0.2); BASO% 0.4 % (0.0-0.8); EOS# 0.12 X1000 (0.0-0.7); EOS% 2.6 % (0.0-10.0); HEMATOCRIT 34.6 % (37.0-47.0); LYMPH# 1.36 X1000 (1.2-3.4); LYMPH% 29.6 % (20.5-51.1); MCH 28.9 PG (27-31); MCHC 31.8 g/dL (33-37); MCV 90.8 FL (81-99); MONO# 0.51 X1000 (0.11-0.59); MONO% 11.1 % (1.7-9.3); MPV 9.7 FL (7.4-10.4); NEUT# 2.58 X1000 (1.4-6.5); NEUT% 56.3 % (42.2-75.2); PLT 148 X1000 (130-400); RBC 3.81 XMIL (4.2-5.4); RDW 13.8 % (11.5-14.5); WBC 4.59 X1000 (4.8-10.8)
[2019-09-02] MEDS ORDERED: ELIQUIS PO SCH (09:00)
[2019-09-02 09:06] LABS: ALB/GLOB RATIO 1.1; ALBUMIN 3.5 g/dL (3.5-5.0); CREATININE 1.1 mg/dL (0.5-0.9); POTASSIUM 3.9 mmol/L (3.5-5.1); TOTAL BILIRUBIN 0.53 mg/dL (0.20-1.00); TOTAL PROTEIN 6.8 g/dL (6.3-8.3)
[2019-09-02] MEDS: COZAAR PO SCH (09:30)
[2019-09-02] MEDS: CATAPRES PO SCH (09:30)
[2019-09-02] MEDS: COREG PO SCH ×2 (09:30→21:45)
[2019-09-02] MEDS: APRESOLINE PO SCH ×3 (09:30→18:21)
[2019-09-02] MEDS: LASIX PO SCH (09:30)
[2019-09-02] MEDS ORDERED: SEROQUEL PO SCH (21:00)
[2019-09-03] MEDS: PRILOSEC PO SCH (06:07)
[2019-09-03 07:31] VITALS: BP 160/70
[2019-09-03] MEDS: LASIX PO SCH (09:35)
[2019-09-03] MEDS: CATAPRES PO SCH (09:35)
[2019-09-03] MEDS: APRESOLINE PO SCH (09:35)
[2019-09-03] MEDS: COZAAR PO SCH (09:35)
[2019-09-03] MEDS: COREG PO SCH (09:35)
--- NOTE | 2019-09-03 10:52 | PROGRESS NOTE ---
DATE: 09/02/2019 This progress note should be dated for the . I was interrupted well initially dictating this and never got back around a finishing the note. SUBJECTIVE: The patient was admitted the previous night with a syncopal episode. She had 3 emergency room visits over the last week based on these episodes and received multiple CT scans and x-rays with no significant findings. The Hospitalist's admission note is reviewed and I concur with his conclusions. OBJECTIVE: Vital Signs: 98.3, 84, 20, 141/82. General: The patient is awake. She is slightly to moderately confused. Lungs: Clear. Cardiovascular: Regular, approximately 72 beats per minute at the time of my examination. Extremities: No peripheral edema. LABORATORY DATA: Admission laboratories were reviewed. They were all normal with the exception of an elevated troponin T high sensitivity test. ASSESSMENT AND PLAN: 1. 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 Her son relates that some 35/40 years ago he remember his mother having these difficulties. Generally, she recovers in just a minute or 2 and is back to herself without any difficulty. Given her age and other infirmities, I do not think any further workup is necessary and the family was in agreement. 2. The patient's abnormal troponin is likely flagged as such because there have been adjustments in the scale and type of troponin T test that they have been using in the hospital. I am not sure that these results are a validly "abnormal". Regardless of this, I discussed with the patient's family and they see no need or any appropriateness in pursuing cardiovascular workup when she is not really a candidate for any type of cardiac intervention. 3. The patient has dementia for quite some time, which has been gradually leading to a downhill course for her in quality of life. On the night she arrived in [place] emergency room, she was given some Ativan and unfortunately, this backfired and she was quite agitated the night previous for the entire night. 4. Hypertension is reasonably well controlled. She has a long history of fairly broad fluctuation in her blood pressure levels. I think he should just be tolerated and no immediate adjustments in medication need to be made. Needs to be looked at in more of a long- term trajectory and looking at average blood pressures over time. 5. I discussed with the patient's family about her blood thinner. She has a pacemaker and is mostly in sinus rhythm. At the time of her admission, she was blowing a little bit of bloody clear mucus out of her nose. I recommended discontinuing anticoagulation completely and the family was thankful of the recommendation and in agreement with that. 6. I do believe that historically the patient is sleep deprived and Ativan clearly is a poor choice for someone of her age and condition. I am going to give her some Seroquel tonight and see how she does with an atypical antipsychotic as her sedation. This would be the most appropriate approach for someone who is elderly with dementia. cc: Ady Pinto MD
--- NOTE | 2019-09-03 11:25 | DISCHARGE SUMMARY ---
ADMISSION DATE: 09/01/2019 DISCHARGE DATE: DISCHARGE DIAGNOSES: 1. Syncope and collapse. 2. Longstanding hypertension. 3. History of atrial fibrillation with pacemaker placement (wireless) 4. Senile dementia. 5. Osteoporosis. HOSPITAL COURSE: This 88-year-old white female is a resident at [facility]. She was transferred to the ER on 3 occasions over the past several days due to "passing-out spells". The patient has a long history of such spells which is have been variously been diagnosed as seizures or syncope. The patient's family relates that this has been going on for at least 40 years, possibly more. The patient was transferred here and received multiple CT scans of the brain as well as x-rays of the chest. She even had a CT scan of the chest to rule out a pulmonary embolus which was negative. When the admitting physician, from the Hospitalist team, interviewed the patient's family, the subject of severe sleep deprivation was brought up. Apparent the patient is up all night at the long-term, very restless and it is unclear if any medications have been prescribed for improvement of this situation. During her hospitalization here, she was given Ativan in the emergency room and had the opposite effect of calming her down and she actually was more agitated. The following day, we started Seroquel and she did quite well through the night and woke up the next morning fairly refreshed. The patient has severe cognitive limitations, so it is difficult to assess her overall status on a daily basis. The patient has chronic hypertension. I think liberal tolerance of variations in blood pressure are going to be necessary in order to manage her. The patient has chronic atrial fibrillation and a pacemaker placement. She was on the lower dose of Eliquis, but was actually having a little bit of epistaxis a discussion with the family in the hopes going forward, we decided to discontinue the blood thinner altogether because at this point in her life and in her condition, the risks likely outweigh the meager benefits of continuing a full scale anticoagulation. The patient was flagged when she came in the hospital with elevated troponin levels. Unfortunately, the scale of the troponins, the troponin lab in our facility has recently been altered and has led to many false positives based on that. In all reality, I think her troponin is normal based on previous labs and she is not a candidate for any type of vascular intervention anyway. I discussed this with the patient's family and they were in agreement with the plan to ignore this likely false finding. In discussion with the patient's family, I encouraged them to talk with the long-term staff as to the expectations of the patient's conditions and the fact that these episodes that are so worrisome to them have been going on for years and are really no consequence to her longevity or the quality of her life. The 2 family members that I discussed this with on both days of the hospitalization were in agreement with proceeding. DISPOSITION: We will plan to transfer her back to [facility] for long-term care. cc: Ady Pinto MD
== END 2019-09-03 13:06 | DRG 312 ==
LOC: SUPCPDRO → ED 17:09 → SUATTDRO 23:34 → 3N 23:34
PROVIDERS: ADMIT Internal Medicine; ATTEND Internal Medicine